=== PATIENT | male | born 1970 | race Two or more races ===

== ENCOUNTER 2017-08-15 17:46 | Inpatient (IN) | payer MEDICAID, OTHER ==
[~2017-08-15] VITALS: Ht 170.2 cm; Wt 70.4 kg
--- NOTE | 2017-08-15 18:06 | NUR ---
TRIAGE NOTE: UNABLE TO INPUT MEDICATION HISTORY IN [facility]
--- NOTE | 2017-08-15 19:59 | NUR ---
Dr. Mckeon at bedside for MSE.
[2017-08-15] MEDS ORDERED: ONDANSETRON 4 MG/2 ML VIAL IV ONE (20:15)
[2017-08-15] MEDS ORDERED: IV NORMAL SALINE 1000 ML BAG IV ONE (20:15)
[2017-08-15] MEDS ORDERED: ONDANSETRON 4 MG/2 ML VIAL ONE (20:16)
[2017-08-15 20:20] LABS: BASOPHILS % (AUTO) 0.4 % (0.0-2.0); EOSINOPHILS # (AUTO) 0.1 K/uL (0.0-0.7); EOSINOPHILS % (AUTO) 1.3 % (0.0-7.0); HEMATOCRIT 46.2 % (36.7-47.1); HEMOGLOBIN 15.7 g/dL (12.5-16.3); LYMPHOCYTES # (AUTO) 3.1 K/uL (20.0-40.0); LYMPHOCYTES % (AUTO) 34.2 % (20.5-51.5); MEAN CORPUSCULAR HEMOGLOBIN 29.3 uug (23.8-33.4); MEAN CORPUSCULAR HGB CONC 34 g/dL (32.5-36.3); MEAN CORPUSCULAR VOLUME 86.2 fL (73.0-96.2); MONOCYTES # (AUTO) 0.8 K/uL (2.0-10.0); MONOCYTES % (AUTO) 9.2 % (0.0-11.0); NEUTROPHILS # (AUTO) 4.9 K/uL (1.8-8.9); NEUTROPHILS % (AUTO) 54.9 % (38.5-71.5); PLATELET COUNT (AUTO) 375 K/uL (152-348); RED BLOOD CELL COUNT(AUTO) 5.36 MIL/uL (4.06-5.63); WHITE BLOOD COUNT (AUTO) 8.9 K/uL (3.6-10.2)
[2017-08-15 20:26] LABS: CARBON DIOXIDE 27 mmol/L (21-32); CHLORIDE 101 mmol/L (98-107); CREATININE 0.6 mg/dL (0.6-1.3); GLUCOSE 121 mg/dL (74-106); UREA NITROGEN, BLOOD 13 mg/dL (7-18)
--- NOTE | 2017-08-15 20:35 | NUR ---
Pt out of ER for CT.
[2017-08-15 20:36] LABS: ALANINE AMINOTRANSFERASE 45 U/L (16-63); ALKALINE PHOSPHATASE 137 U/L (50-136); ASPARTATE AMINOTRANSFERASE 23 U/L (15-37); BILIRUBIN,DIRECT < 0.1 mg/dL (0.0-0.2); BILIRUBIN,TOTAL 0.2 mg/dL (0.2-1.0); LIPASE 149 U/L (73-393); TOTAL PROTEIN, SERUM 8.6 g/dL (6.4-8.2)
--- NOTE | 2017-08-15 20:55 | NUR ---
Patient back to ER from CT.
--- NOTE | 2017-08-15 20:55 | NUR ---
Patient reports feeling better, no nausea, reports to be hungry, requests some food.
[2017-08-15 21:47] LABS: *BILIRUBIN,URIN NEGATIVE (NEGATIVE); *BLOOD, URINE Trace-intact (NEGATIVE); *CLARITY,URINE CLEAR (CLEAR); *COLOR,URINE YELLOW (YELLOW); *KETONES,URINE NEGATIVE (NEGATIVE); *PROTEIN,URINE TRACE (NEGATIVE); *UROBILINOGEN,URINE 0.2 E.U./dl (NORMAL); LEUKOCYTE ESTERASE ,URINE NEGATIVE (NEGATIVE); NITRITE, URINE NEGATIVE (NEGATIVE); UGLUCOSE NEGATIVE (NEGATIVE)
[2017-08-15 21:56] LABS: BACTERIA,URINE FEW /HPF (NONE SEEN); RBC,URINE 0-3 /HPF (0-3); SQUAMOUS EPITHELIAL CELL,UR FEW /HPF (NONE SEEN)
[2017-08-15] MEDS ORDERED: HYDROCODONE/APAP 5-325MG TABLET ONE (23:00)
[2017-08-15] MEDS ORDERED: HYDROCODONE/APAP 5-325MG TABLET PO ONE (23:00)
--- NOTE | 2017-08-15 23:28 | NUR ---
Pt vomitted, MD notified.
[2017-08-15] MEDS ORDERED: METOCLOPRAMIDE HCL 10 MG/2 ML VIAL IV ONE (23:30)
[2017-08-15] MEDS ORDERED: METOCLOPRAMIDE HCL 10 MG/2 ML VIAL ONE (23:44)
[2017-08-16] MEDS ORDERED: IV NS 1000 ML 1,000 ML IV PRN ×2 (00:10→00:22)
--- NOTE | 2017-08-16 00:14 | NUR ---
Passed report to Rebeca SANTA Medsurg.
[2017-08-16] MEDS ORDERED: ACETAMINOPHEN 325 MG TABLET PO PRN (00:15)
[2017-08-16] MEDS ORDERED: HYDROCODONE/APAP 5-325MG TABLET PO PRN (00:15)
[2017-08-16] MEDS ORDERED: TEMAZEPAM 15 MG CAPSULE PO PRN (00:15)
--- NOTE | 2017-08-16 00:40 | NUR ---
Admitted a 46y/o male with diagnosis of Abdominal pain. AOx2-3.Grenadian speaking only. IV site on left hand intact and patent. Routine admission care done. Plan of care initiated. Safety measure initiated.
[2017-08-16 01:00] VITALS: BP 107/70
--- NOTE | 2017-08-16 01:08 | NUR ---
Passed report to Sapphire SANTA Medsurg
[2017-08-16] MEDS: PANTOPRAZOLE SODIUM 40 MG VIAL IV SCH ×2 (01:22→08:42)
[2017-08-16] MEDS: MORPHINE SULFATE 4 MG/1 ML DISP.SYRIN IV PRN ×2 (01:23→10:36)
[2017-08-16 04:00] VITALS: BP 102/67
--- NOTE | 2017-08-16 06:13 | NUR ---
Pt slept well after admission. Remains AOx2-3. Egyptian speaking only. VS WNL. Pain on right hip area manage with Morphine PRN. No nausea or vomiting noted. O2 sat at 94% on RA.IV site on left hand intact and patent. IVF fluid infusing. On NPO status. Safety measure maintained and call rose within reach.
[2017-08-16 06:35] LABS: BASOPHILS % (AUTO) 0.4 % (0.0-2.0); EOSINOPHILS # (AUTO) 0.2 K/uL (0.0-0.7); EOSINOPHILS % (AUTO) 2.4 % (0.0-7.0); HEMOGLOBIN 13.8 g/dL (12.5-16.3); LYMPHOCYTES # (AUTO) 2.3 K/uL (20.0-40.0); LYMPHOCYTES % (AUTO) 32.2 % (20.5-51.5); MEAN CORPUSCULAR HEMOGLOBIN 29.1 uug (23.8-33.4); MEAN CORPUSCULAR HGB CONC 34 g/dL (32.5-36.3); MEAN CORPUSCULAR VOLUME 86.5 fL (73.0-96.2); MONOCYTES # (AUTO) 0.8 K/uL (2.0-10.0); MONOCYTES % (AUTO) 10.7 % (0.0-11.0); NEUTROPHILS # (AUTO) 3.9 K/uL (1.8-8.9); NEUTROPHILS % (AUTO) 54.3 % (38.5-71.5); PLATELET COUNT (AUTO) 342 K/uL (152-348); RED BLOOD CELL COUNT(AUTO) 4.74 MIL/uL (4.06-5.63); WHITE BLOOD COUNT (AUTO) 7.1 K/uL (3.6-10.2)
[2017-08-16 06:53] LABS: ALANINE AMINOTRANSFERASE 59 U/L (16-63); ALKALINE PHOSPHATASE 119 U/L (50-136); ASPARTATE AMINOTRANSFERASE 55 U/L (15-37); BILIRUBIN,TOTAL 0.4 mg/dL (0.2-1.0); CARBON DIOXIDE 26 mmol/L (21-32); CHLORIDE 107 mmol/L (98-107); CREATININE 0.6 mg/dL (0.6-1.3); GLUCOSE 106 mg/dL (74-106); PHOSPHOROUS 3.8 mg/dL (2.5-4.9); POTASSIUM 3.7 mmol/L (3.5-5.1); TOTAL PROTEIN, SERUM 7.1 g/dL (6.4-8.2); UREA NITROGEN, BLOOD 9 mg/dL (7-18)
[2017-08-16 06:59] LABS: THYROID STIMULATING HORMONE 1.248 mIU/mL (0.358-3.740)
[2017-08-16] MEDS ORDERED: DEXTROSE 50% 50 ML DISP.SYRIN IV PRN (07:00)
[2017-08-16] MEDS ORDERED: LORAZEPAM 2 MG/1 ML VIAL IV PRN (07:00)
[2017-08-16] MEDS ORDERED: INSULIN REGULAR, HUMAN 300 UNIT/3 ML VIAL SQ PRN (07:00)
[2017-08-16] MEDS: LEVETIRACETAM IV 500 MG in IV DEXTROSE 5% 100 ML IV SCH ×2 (08:41→21:58)
[2017-08-16] MEDS: ENOXAPARIN SODIUM 40 MG/0.4 ML DISP.SYRIN SQ SCH (08:43)
[2017-08-16] MEDS: IV D5/ 0.9% NACL 1,000 ML IV PRN (08:56)
[2017-08-16] MEDS: ONDANSETRON 4 MG/2 ML VIAL IV PRN ×2 (10:50→23:32)
[2017-08-16] MEDS ORDERED: GOLYTELY 4000 ML BOTTLE PO ONE (11:00)
[2017-08-16] MEDS ORDERED: FLEET ENEMA 133 ML BOTTLE RC ONE (11:00)
[2017-08-16] MEDS ORDERED: MAGNESIUM CITRATE 296 ML BOTTLE PO ONE (11:00)
[2017-08-16 11:28] VITALS: BP 104/56
[2017-08-16] MEDS ORDERED: ONDA4TAB5 PO (12:01)
[2017-08-16] MEDS ORDERED: ATEN25TA PO (12:01)
[2017-08-16] MEDS ORDERED: LEVE500T20 PO (12:01)
[2017-08-16] MEDS ORDERED: HYDR-3326 PO (12:01)
[2017-08-16] MEDS ORDERED: LACO10SO PO (12:01)
[2017-08-16] MEDS ORDERED: DIVA125T2 PO (12:01)
[2017-08-16] MEDS ORDERED: ZONI100C6 PO (12:01)
[2017-08-16] MEDS ORDERED: IBUP-1957 PO (12:01)
[2017-08-16] MEDS ORDERED: POLY15DR27 OP (12:01)
[2017-08-16] MEDS ORDERED: PARO10TA86 PO (12:01)
[2017-08-16] MEDS ORDERED: ASPI-605 PO (12:01)
[2017-08-16] MEDS ORDERED: MELA3TAB PO (12:01)
[2017-08-16] MEDS ORDERED: LISI2.5T2 PO (12:01)
[2017-08-16] MEDS ORDERED: CHOL10002 PO (12:01)
[2017-08-16] MEDS: BLOOD SUGAR DIAGNOSTIC 1 EACH STRIP VI SCH ×3 (12:37→23:05)
[2017-08-16 15:42] VITALS: BP 97/65
--- NOTE | 2017-08-16 18:00 | NUR ---
Patient alert, in no distress. Patient c/o of abdominal pain & nausea, pain management and med for nausea provided. IVF running, no infiltration noted. Prep for colonoscopy/egd procedure done as ordered. Patient had frequent soft/watery stool. Encouraged patient to take golytely to clear bowel, patient verbalized understanding. ETA of procedure to be done tomorrow 08/17/17 at 1400. Patient to be NPO after midnight. Consent forms needs to be signed by the patient, translation in Malay needed. Endorsed to the night coordinator RN.
--- NOTE | 2017-08-16 19:10 | NUR ---
RECEIVED PT AWAKE, ALERT, ORIENTEDX4. PT SHOWS NO SIGNS OF DISTRESS. PT IV INTACT AND PATENT. PT NEED INFORMED CONSENT FOR CRESCENCIO PROCEDURE. CALL LIGHT WITHIN REACH, BED ALARM ON AND IN LOW POSITION, SIDE RAILSX2.WILL CONTINUE TO MONITOR.
[2017-08-16 20:00] VITALS: BP 113/70
[2017-08-16 20:04] LABS: *OCCULT BLOOD STOOL NEGATIVE (NEGATIVE)
--- NOTE | 2017-08-16 21:00 | NUR ---
CALLED SCHOOL BUS DRIVER/CUSTODIAN FOR THE INFORMED CONSENT OF THE PT. ANGELIKA #[id number] TRANSLATED TO THE PT REGARDING THE INFORMED CONSENT FOR HIS EGD AND COLONOSCOPY. CHARGED NURSE WITNESSED THE INFORMED CONSENT AND THE TRANSLATION PROCESS.INFORMED CONSENT ON CHART.
[2017-08-17] MEDS: IV D5/ 0.9% NACL 1,000 ML IV PRN (01:28)
[2017-08-17 04:00] VITALS: BP 105/67
[2017-08-17] MEDS: BLOOD SUGAR DIAGNOSTIC 1 EACH STRIP VI SCH ×3 (05:51→17:15)
[2017-08-17] MEDS: MORPHINE SULFATE 4 MG/1 ML DISP.SYRIN IV PRN (05:54)
[2017-08-17 05:59] LABS: BASOPHILS % (AUTO) 0.5 % (0.0-2.0); EOSINOPHILS # (AUTO) 0.1 K/uL (0.0-0.7); EOSINOPHILS % (AUTO) 1.3 % (0.0-7.0); HEMATOCRIT 39.7 % (36.7-47.1); HEMOGLOBIN 13.6 g/dL (12.5-16.3); LYMPHOCYTES # (AUTO) 1.7 K/uL (20.0-40.0); LYMPHOCYTES % (AUTO) 20.1 % (20.5-51.5); MEAN CORPUSCULAR HEMOGLOBIN 29.2 uug (23.8-33.4); MEAN CORPUSCULAR HGB CONC 34 g/dL (32.5-36.3); MEAN CORPUSCULAR VOLUME 85.6 fL (73.0-96.2); MONOCYTES # (AUTO) 0.7 K/uL (2.0-10.0); MONOCYTES % (AUTO) 7.6 % (0.0-11.0); NEUTROPHILS # (AUTO) 6.1 K/uL (1.8-8.9); NEUTROPHILS % (AUTO) 70.5 % (38.5-71.5); PLATELET COUNT (AUTO) 319 K/uL (152-348); RED BLOOD CELL COUNT(AUTO) 4.64 MIL/uL (4.06-5.63); WHITE BLOOD COUNT (AUTO) 8.6 K/uL (3.6-10.2)
[2017-08-17 06:22] LABS: CARBON DIOXIDE 26 mmol/L (21-32); CHLORIDE 105 mmol/L (98-107); CHOLESTEROL 146 mg/dL (<200); CREATININE 0.6 mg/dL (0.6-1.3); GLUCOSE 127 mg/dL (74-106); HDL CHOLESTEROL 30 mg/dL (40-60); POTASSIUM 3.5 mmol/L (3.5-5.1); TRIGLYCERIDES 125 MG/DL (30-150); UREA NITROGEN, BLOOD 5 mg/dL (7-18)
--- NOTE | 2017-08-17 07:49 | NUR ---
RECEIVED PT AWAKE, ALERT, ORIENTEDX4. PT SHOWS NO SIGNS OF DISTRESS. PT IV INTACT AND PATENT. CALL LIGHT WITHIN REACH, BED ALARM ON AND IN LOW POSITION, SIDE RAILSX2.WILL CONTINUE TO MONITOR.
[2017-08-17] MEDS: PANTOPRAZOLE SODIUM 40 MG VIAL IV SCH (08:01)
[2017-08-17] MEDS: LEVETIRACETAM IV 500 MG in IV DEXTROSE 5% 100 ML IV SCH (08:17)
[2017-08-17] MEDS: ENOXAPARIN SODIUM 40 MG/0.4 ML DISP.SYRIN SQ SCH (08:20)
[2017-08-17] MEDS ORDERED: PANTOPRAZOLE SODIUM 40 MG VIAL IV SCH (11:34)
[2017-08-17 11:46] VITALS: BP 98/59
--- NOTE | 2017-08-17 13:37 | NUR ---
PT WENT TO GI LAB FOR EGD AND COLONOSCOPY VIA BED IN STABLE CONDITION,
[2017-08-17] MEDS ORDERED: SIMETHICONE 40 MG/0.6 ML 30 ML BOTTLE MC ONE (15:18)
[2017-08-17] MEDS ORDERED: PROPOFOL 200 MG/20 ML BOTTLE IV ONE (15:18)
--- NOTE | 2017-08-17 16:30 | NUR ---
PT RECEIVED FROM RECOVERY ROOM VIA BED INSTABLE CONDITION.V/S ARE STABLE.
--- NOTE | 2017-08-17 17:54 | NUR ---
PT EAT DINNER TOLERATED WELL
--- NOTE | 2017-08-17 18:24 | NUR ---
D/C ORDERS RECEIVED NOTED AND CARRIED OUT,D/C HEPLOCK PER MD ORDERS.RN REPORT GIVEN TO RETIREMENT.PT LEFT THE FACILITY VIA AMBULANCES IN STABLE CONDITION
== END 2017-08-17 18:47 | DRG 249 ==
LOC: ER 17:49 → MED 23:00
PROVIDERS: ADMIT Nurse Practitioner Acute Care; ATTEND Nurse Practitioner Acute Care
DX: A08.4 Viral intestinal infection, unspecified (principal); G93.40 Encephalopathy, unspecified; E87.1 Hypo-osmolality and hyponatremia; E44.1 Mild protein-calorie malnutrition; K22.10 Ulcer of esophagus without bleeding; Z86.74 Personal history of sudden cardiac arrest; E86.1 Hypovolemia; K29.70 Gastritis, unspecified, without bleeding; E55.9 Vitamin D deficiency, unspecified; K44.9 Diaphragmatic hernia without obstruction or gangrene; K64.0 First degree hemorrhoids; Z86.73 Personal history of transient ischemic attack (TIA), and cerebral infarction without residual deficits; G40.909 Epilepsy, unspecified, not intractable, without status epilepticus; K80.20 Calculus of gallbladder without cholecystitis without obstruction; K57.30 Diverticulosis of large intestine without perforation or abscess without bleeding; J98.11 Atelectasis; F32.9 Major depressive disorder, single episode, unspecified; Z68.24 Body mass index [BMI] 24.0-24.9, adult; I10 Essential (primary) hypertension; F29 Unspecified psychosis not due to a substance or known physiological condition; Z79.899 Other long term (current) drug therapy; K59.09 Other constipation; K21.0 Gastro-esophageal reflux disease with esophagitis; R59.0 Localized enlarged lymph nodes
CPT/HCPCS: 36415; 43235; 70030-TC; 71045; 76705; 80164; 83605; 83690; 83735; 84100; 84443; 85025; 85730; 87040; 87086; 88342; 93005; A4217; A4663; C9113; J1650; J1815; J1953; J2270; J2405; J2765; J3490; J7030; J7042; J7060

== ENCOUNTER 2018-01-26 22:29 | Inpatient (IN) | payer OTHER ==
[~2018-01-26] VITALS: Ht 162.6 cm; Wt 72.1 kg
[~2018-01-26 22:29] MED LIST: ASPI-605 PO; ATEN25TA PO; CHOL10002 PO; DIVA125T2 PO; HYDR-3326 PO; IBUP-1957 PO; LACO10SO PO; LEVE500T20 PO; LISI2.5T2 PO; MELA3TAB PO; ONDA4TAB5 PO; PARO10TA86 PO; POLY15DR27 OP; ZONI100C6 PO
[2018-01-26] MEDS ORDERED: DEPAKOTE PO (23:04)
[2018-01-26] MEDS ORDERED: LACO10SO PO (23:04)
[2018-01-26] MEDS ORDERED: PANT40TA4 PO (23:04)
[2018-01-26] MEDS ORDERED: METF-442 PO (23:04)
[2018-01-26] MEDS ORDERED: IBUP-1953 PO (23:04)
--- NOTE | 2018-01-26 23:13 | NUR ---
Pt was brought in by ambulance for complaints of nausea, abd pain, vomiting today. Pt stated that he cant keep anything down. Contracted and weakness to BLE noted. No sob noted. No s/sx of distress noted. Resp even and unlabored. Alert, oriented x3. Will cont to monitor. Call light within reach.
[2018-01-26 23:20] LABS: BASOPHILS % (AUTO) 0.5 % (0.0-2.0); EOSINOPHILS # (AUTO) 0.1 K/uL (0.0-0.7); EOSINOPHILS % (AUTO) 1.4 % (0.0-7.0); HEMATOCRIT 44.7 % (36.7-47.1); HEMOGLOBIN 15.5 g/dL (12.5-16.3); LYMPHOCYTES # (AUTO) 2.8 K/uL (20.0-40.0); LYMPHOCYTES % (AUTO) 35.8 % (20.5-51.5); MEAN CORPUSCULAR HEMOGLOBIN 29.4 uug (23.8-33.4); MEAN CORPUSCULAR HGB CONC 35 g/dL (32.5-36.3); MEAN CORPUSCULAR VOLUME 85.1 fL (73.0-96.2); MONOCYTES # (AUTO) 0.8 K/uL (2.0-10.0); MONOCYTES % (AUTO) 10.3 % (0.0-11.0); NEUTROPHILS # (AUTO) 4.1 K/uL (1.8-8.9); PLATELET COUNT (AUTO) 329 K/uL (152-348); RED BLOOD CELL COUNT(AUTO) 5.25 MIL/uL (4.06-5.63); WHITE BLOOD COUNT (AUTO) 7.8 K/uL (3.6-10.2)
[2018-01-26 23:26] LABS: CARBON DIOXIDE 25 mmol/L (21-32); CHLORIDE 102 mmol/L (98-107); CREATININE 0.6 mg/dL (0.6-1.3); GLUCOSE 118 mg/dL (74-106); POTASSIUM 3.8 mmol/L (3.5-5.1); UREA NITROGEN, BLOOD 11 mg/dL (7-18)
[2018-01-26 23:31] LABS: ALANINE AMINOTRANSFERASE 36 U/L (16-63); ALKALINE PHOSPHATASE 108 U/L (50-136); ASPARTATE AMINOTRANSFERASE 18 U/L (15-37); BILIRUBIN,DIRECT 0.1 mg/dL (0.0-0.2); BILIRUBIN,TOTAL 0.4 mg/dL (0.2-1.0); LIPASE 118 U/L (73-393)
[2018-01-26 23:36] LABS: *BILIRUBIN,URIN NEGATIVE (NEGATIVE); *BLOOD, URINE Trace-intact (NEGATIVE); *COLOR,URINE YELLOW (YELLOW); *KETONES,URINE TRACE (NEGATIVE); *PROTEIN,URINE NEGATIVE (NEGATIVE); LEUKOCYTE ESTERASE ,URINE NEGATIVE (NEGATIVE); NITRITE, URINE NEGATIVE (NEGATIVE); UGLUCOSE NEGATIVE (NEGATIVE)
[2018-01-26 23:51] LABS: *CLARITY,URINE HAZY (CLEAR)
[2018-01-26 23:52] LABS: BACTERIA,URINE FEW /HPF (NONE SEEN); MUCUS,URINE FEW /LPF (0-FEW); SQUAMOUS EPITHELIAL CELL,UR MODERATE /HPF (NONE SEEN); URINE AMORPHOUS PHOSPHATES MODERATE /HPF; WBC,URINE 0-3 /HPF (0-3)
--- NOTE | 2018-01-27 00:24 | NUR ---
Pt sleeping at this time. no sob noted. No s/sx of distress noted. Resp even and unlabored. will cont to monitor.
--- NOTE | 2018-01-27 00:57 | NUR ---
Attempted to call report. Receiving nurse is unavailable. Receiving RN will call back.
[2018-01-27] MEDS ORDERED: MORPHINE SULFATE 2 MG/1 ML DISP.SYRIN IV PRN (01:15)
[2018-01-27] MEDS ORDERED: ACETAMINOPHEN 650 MG SUPP.RECT RC PRN (01:15)
[2018-01-27] MEDS ORDERED: ONDANSETRON 4 MG/2 ML VIAL IV PRN (01:15)
--- NOTE | 2018-01-27 01:15 | NUR ---
Patient arrived on unit. Report received from KIET Barnard. Patient is A&O x3 and able to verbalize all needs. Patient is A 47yo Male admitted for abdominal pain. Patient is resting in bed comfortably. Patient is continent of bowel & bladder. Lung sounds are clear bilaterally. No respiratory distress noted. PERRLA. Seizure precautions. Bowel sounds present. At the moment, no pain reported by patient when asked. Skin is warm, dry , pink & intact. Patient has severe weakness in all extremities. Patient is comfortable & resting in bed. All needs met. Call light within reach. Bed in lowest position with 2/4 side rails up & bed alarm on for safety. Will continue to monitor.
[2018-01-27 01:17] VITALS: BP 117/78
--- NOTE | 2018-01-27 01:24 | NUR ---
Report given to KIET Fuentes. Pt. admitted to [facility] , under care of Dr. Carrasco Belongs List completed
[2018-01-27 02:40] LABS: IRON, SERUM 84 ug/dL (50-175)
[2018-01-27] MEDS: IV D5/ 0.9% NACL 1,000 ML IV PRN ×2 (03:08→15:45)
[2018-01-27 04:42] VITALS: BP 115/73
[2018-01-27] MEDS ORDERED: MORPHINE SULFATE 4 MG/1 ML DISP.SYRIN IV PRN (07:30)
[2018-01-27] MEDS: PANTOPRAZOLE SODIUM 40 MG VIAL IV SCH (08:35)
[2018-01-27 11:14] VITALS: BP 98/70
[2018-01-27] MEDS: DIVALPROEX 500 MG TABLET.DR PO SCH ×2 (12:56→16:29)
[2018-01-27] MEDS ORDERED: DIVALPROEX 125 MG TABLET.DR PO SCH ×2 (13:00)
[2018-01-27] MEDS ORDERED: DEPAKOTE PO SCH (13:00)
[2018-01-27] MEDS ORDERED: MAGNESIUM CITRATE 296 ML BOTTLE PO ONE (13:30)
[2018-01-27] MEDS ORDERED: GOLYTELY 4000 ML BOTTLE PO ONE (13:30)
[2018-01-27 15:28] VITALS: BP 91/55
--- NOTE | 2018-01-27 15:29 | NUR ---
PT OBSERVED RESTING WITH NO SIGNS OF RESPIRATORY DISTRESS, BED AT LOWEST LOCKED POSITION. PT REMAINS NPO UNTIL ABDOMINAL US IS COMPLETE.
--- NOTE | 2018-01-27 15:45 | NUR ---
NURSE REASSIGNMENT ASSUMED CARE OF THIS PATIENT AT THIS TIME HE IS ASLEEP OPENS EYES WHEN NAME IS CALLED AND WILL PROMPTLY FALL BACK ASLEEP NO DISTRESS NOTED ON IVF ORDERED WITH NO S/S OF INFILTRATION ON SITE NO SEIZURE ACTIVITIES AT THIS TIME REMAIN NPO PENDING CT OF THE ABDOMEN ORDERED MADE COMFORTABLE AND WILL CONTINUE TO OBSERVE.
[2018-01-27] MEDS: LEVETIRACETAM 500 MG TABLET PO SCH (16:29)
[2018-01-27] MEDS ORDERED: Medication Not On Formulary EA (Lacosamide (Vimpat) 100 MG) PO SCH (17:00)
--- NOTE | 2018-01-27 18:09 | NUR ---
TOLERATED MEDICATIONS ORDERED NO SEIZURES REPOSITIONED FOR COMFORT VOIDING IN URINAL ASSISTED NEEDED HEELS FLOATED MADE COMFORTABLE WILL CONTINUE TO OBSERVE.
[2018-01-27 19:00] VITALS: BP 94/55
--- NOTE | 2018-01-27 19:23 | NUR ---
RECEIVED PT AWAKE, ALERT, AND ORIENTEDX3. PT SHOWS NO SIGNS OF DISTRESS. IV INTACT AND PATENT BED ALARM ON.SAFETY AND COMFORT PROVIDED. WILL CONTINUE TO MONITOR.
[2018-01-27] MEDS: ATENOLOL 25 MG TABLET PO SCH (21:00)
[2018-01-27] MEDS: LACOSAMIDE 50 MG TABLET PO SCH (21:00)
[2018-01-27] MEDS: ZONISAMIDE 100 MG CAPSULE PO SCH (21:04)
--- NOTE | 2018-01-27 21:55 | NUR ---
HELD MEDICATIONS FOR VIMPAT AND TENORMIN BECAUSE OF DECREASED BP. BP WAS 94/55 AND 69 PULSE. PT SHOWS NO SIGNS OF DISTRESS. IV INTACT. TURNED AND REPOSITIONED. SAFETY AND COMFORT PROVIDED. WILL CONTINUE TO MONITOR.
[2018-01-27] MEDS: ACETAMINOPHEN 325 MG TABLET PO PRN (22:02)
[2018-01-28 04:00] VITALS: BP 87/57
[2018-01-28] MEDS: IV D5/ 0.9% NACL 1,000 ML IV PRN ×3 (04:28→23:37)
[2018-01-28] MEDS ORDERED: FLEET ENEMA 133 ML BOTTLE RC PRN (06:00)
--- NOTE | 2018-01-28 06:27 | NUR ---
PT SLEPT INTERMITTENTLY.. BED ALARM ON. SAFETY AND COMFORT PROVIDED.IV INTACT AND PATENT. PRESCRIBED MEDICATION GIVEN AND PT TOLERATED IT WELL. ALL NEEDS ARE MET. TURNED AND [id number]. PT ASKING FOR SLEEPING MEDICATION AT 3AM. TOLD THE PT ITS 3AM ALREADY AND IT IS OUR POLICY NOT TO GIVE SLEEPING MEDICATION AT THAT HOUR. WILL ENDORSE ACCORDINGLY TO DAYSHIFT NURSE.
[2018-01-28 06:35] LABS: BASOPHILS % (AUTO) 0.4 % (0.0-2.0); CARBON DIOXIDE 24 mmol/L (21-32); CHLORIDE 109 mmol/L (98-107); CREATININE 0.6 mg/dL (0.6-1.3); EOSINOPHILS # (AUTO) 0.1 K/uL (0.0-0.7); EOSINOPHILS % (AUTO) 1.4 % (0.0-7.0); GLUCOSE 122 mg/dL (74-106); HEMATOCRIT 41.4 % (36.7-47.1); HEMOGLOBIN 14.2 g/dL (12.5-16.3); LYMPHOCYTES % (AUTO) 33.8 % (20.5-51.5); MAGNESIUM 1.9 mg/dL (1.8-2.4); MEAN CORPUSCULAR HEMOGLOBIN 29.7 uug (23.8-33.4); MEAN CORPUSCULAR HGB CONC 34 g/dL (32.5-36.3); MEAN CORPUSCULAR VOLUME 86.6 fL (73.0-96.2); MONOCYTES # (AUTO) 0.6 K/uL (2.0-10.0); NEUTROPHILS # (AUTO) 3.3 K/uL (1.8-8.9); NEUTROPHILS % (AUTO) 54.4 % (38.5-71.5); PHOSPHOROUS 3.2 mg/dL (2.5-4.9); PLATELET COUNT (AUTO) 282 K/uL (152-348); POTASSIUM 3.7 mmol/L (3.5-5.1); RED BLOOD CELL COUNT(AUTO) 4.78 MIL/uL (4.06-5.63); UREA NITROGEN, BLOOD 6 mg/dL (7-18); WHITE BLOOD COUNT (AUTO) 6.1 K/uL (3.6-10.2)
--- NOTE | 2018-01-28 08:00 | NUR ---
AWAKE ALERT COOPERATE NO SOB OR ABD PAIN EAT CLEAR LIQWELL NO N/V ON FALL PRECAUTION BED ALARM ON AND CALLLIGHT IN REACH
[2018-01-28] MEDS: PANTOPRAZOLE SODIUM 40 MG VIAL IV SCH (08:19)
[2018-01-28] MEDS: LEVETIRACETAM 500 MG TABLET PO SCH ×2 (08:20→17:15)
[2018-01-28] MEDS: ASPIRIN EC 81 MG TABLET.DR PO SCH (08:20)
[2018-01-28] MEDS: CHOLECALCIFEROL 1,000 UNIT TABLET PO SCH (08:20)
[2018-01-28] MEDS: LACOSAMIDE 50 MG TABLET PO SCH ×2 (08:20→21:00)
[2018-01-28] MEDS: DIVALPROEX 500 MG TABLET.DR PO SCH ×3 (08:20→17:15)
[2018-01-28] MEDS: PAROXETINE HCL 10 MG TABLET PO SCH (08:20)
[2018-01-28 08:30] VITALS: BP 90/61
[2018-01-28] MEDS: LISINOPRIL 5 MG TABLET PO SCH (09:00)
[2018-01-28] MEDS: ATENOLOL 25 MG TABLET PO SCH ×2 (09:00→21:00)
--- NOTE | 2018-01-28 10:00 | NUR ---
Teresa NEWTON WASINFORMOF PATIENT BP STILLLOWBUT STABLE NEW ORDER TO INCREASE IV RATE TO 125ML/HR
[2018-01-28 11:27] VITALS: BP 107/66
--- NOTE | 2018-01-28 14:00 | NUR ---
PATIENT HAVING LOOSE BM X3 TODAY JESSICA WAS INFORM STOOL SENT TO LAB ORDER
[2018-01-28 15:30] VITALS: BP 110/65
[2018-01-28] MEDS: ACETAMINOPHEN 325 MG TABLET PO PRN ×2 (17:15→21:48)
--- NOTE | 2018-01-28 17:30 | NUR ---
STABLE HEMODYNAMIC STATUS ,PAIN UNDER CONTROL CONTINUE IVF EAT LIQDIET WELL NO N/V NO ACUTE DISTRESS SAFETY AND COMFORT MEASURE PROVIDED BED ALARM ON AND CALLLIGHT IN REACH
--- NOTE | 2018-01-28 19:42 | NUR ---
RECEIVED PT AWAKE, ALERT,AND ORIENTEDX3. PT SHOWS NO SIGNS OF DISTRESS. IV INTACT AND PATENT. CALL LIGHT WITHIN REACH. SAFETY AND COMFORT PROVIDED. WILL CONTINUE TO MONITOR.
[2018-01-28 20:19] VITALS: BP 105/60
[2018-01-28] MEDS: ZONISAMIDE 100 MG CAPSULE PO SCH (20:21)
[2018-01-28 23:19] LABS: *OCCULT BLOOD STOOL NEGATIVE (NEGATIVE)
[2018-01-29] MEDS ORDERED: ZOLPIDEM 5 MG TABLET PO PRN (01:00)
[2018-01-29 05:34] VITALS: BP 115/72
--- NOTE | 2018-01-29 06:11 | NUR ---
PT SLEPT THROUGHOUT THE SHIFT. PT SHOWS NO SIGNS OF DISTRESS. IV INTACT AND PATENT. SAFETY AND COMFORT PROVIDED. TURNED AND REPOSITIONED. VIMPAT AND TENORMIN HOLD BECAUSE OF DECREASED BLOOD PRESSURE OF 105/60. NOTIFY DR. GAYTAN ABOUT THE BLOOD PRESSURE. PT REQUESTED SLEEP MEDICATION. DR. GAYTAN ORDERED AMBIEN 5MG HSPRN. PRESCRIBED MEDICATION GIVEN AND PT TOLERATED IT WELL. VITAL SIGNS WITHIN NORMAL LIMIT. PT REFUSED TO PUT HIS HOSPITAL GOWN ON. SAFETY AND COMFORT PROVIDED. ALL NEEDS ARE MET. WILL ENDORSE ACCORDINGLY TO DAYSHIFT NURSE FOR CONTINUITY OF CARE.
[2018-01-29 06:54] LABS: BASOPHILS % (AUTO) 0.4 % (0.0-2.0); EOSINOPHILS # (AUTO) 0.1 K/uL (0.0-0.7); EOSINOPHILS % (AUTO) 1.4 % (0.0-7.0); HEMOGLOBIN 13.9 g/dL (12.5-16.3); LYMPHOCYTES # (AUTO) 1.5 K/uL (20.0-40.0); LYMPHOCYTES % (AUTO) 25.7 % (20.5-51.5); MEAN CORPUSCULAR HEMOGLOBIN 29.5 uug (23.8-33.4); MEAN CORPUSCULAR HGB CONC 34 g/dL (32.5-36.3); MONOCYTES # (AUTO) 0.5 K/uL (2.0-10.0); MONOCYTES % (AUTO) 9.2 % (0.0-11.0); NEUTROPHILS # (AUTO) 3.8 K/uL (1.8-8.9); NEUTROPHILS % (AUTO) 63.3 % (38.5-71.5); PLATELET COUNT (AUTO) 275 K/uL (152-348); RED BLOOD CELL COUNT(AUTO) 4.71 MIL/uL (4.06-5.63); WHITE BLOOD COUNT (AUTO) 5.9 K/uL (3.6-10.2)
[2018-01-29] MEDS ORDERED: PANTOPRAZOLE SODIUM 40 MG TABLET.DR PO SCH (07:00)
[2018-01-29 07:06] LABS: CARBON DIOXIDE 22 mmol/L (21-32); CHLORIDE 109 mmol/L (98-107); CREATININE 0.5 mg/dL (0.6-1.3); GLUCOSE 141 mg/dL (74-106); POTASSIUM 3.5 mmol/L (3.5-5.1); UREA NITROGEN, BLOOD 3 mg/dL (7-18)
[2018-01-29 07:07] LABS: MAGNESIUM 1.7 mg/dL (1.8-2.4); PHOSPHOROUS 2.6 mg/dL (2.5-4.9); VALPROIC ACID 53 ug/mL (50-100)
[2018-01-29] MEDS: IV D5/ 0.9% NACL 1,000 ML IV PRN (07:17)
[2018-01-29] MEDS: DIVALPROEX 500 MG TABLET.DR PO SCH ×3 (08:10→16:15)
[2018-01-29] MEDS: LEVETIRACETAM 500 MG TABLET PO SCH ×2 (08:10→16:16)
[2018-01-29] MEDS: ATENOLOL 25 MG TABLET PO SCH (08:17)
[2018-01-29] MEDS: CHOLECALCIFEROL 1,000 UNIT TABLET PO SCH (08:18)
[2018-01-29] MEDS: LACOSAMIDE 50 MG TABLET PO SCH (08:18)
[2018-01-29] MEDS: ASPIRIN EC 81 MG TABLET.DR PO SCH (08:18)
[2018-01-29] MEDS: PAROXETINE HCL 10 MG TABLET PO SCH (08:18)
[2018-01-29] MEDS: LISINOPRIL 5 MG TABLET PO SCH (08:18)
--- NOTE | 2018-01-29 09:48 | NUR ---
Received patient sleeping in stable condition with ongoing IVF D5NS 1000ML % running 125ML/HR. not in distress. medication tolerated well. Continue repositioning as needed. Continue monitoring blood pressure controlled with medication. will continue monitor
[2018-01-29] MEDS ORDERED: MAGNESIUM SULFATE/D5W 100 ML IV SCH (10:45)
[2018-01-29 11:03] VITALS: BP 134/85
--- NOTE | 2018-01-29 11:19 | NUR ---
Patient magnesium 1.7 low, magnesium 100ml IV given as per MD order. will continue monitor
[2018-01-29] MEDS: SUCRALFATE 1 G TABLET PO SCH ×2 (11:25→16:15)
[2018-01-29] MEDS ORDERED: ATEN25TA PO (15:27)
[2018-01-29] MEDS ORDERED: ACET325T53 PO (15:27)
[2018-01-29] MEDS ORDERED: MULT1TAB73 PO (15:27)
[2018-01-29] MEDS ORDERED: SUCR1TAB PO (15:27)
[2018-01-29] MEDS ORDERED: LISI2.5T2 PO (15:27)
[2018-01-29] MEDS ORDERED: GLIP5TAB13 PO (15:41)
[2018-01-29 15:58] VITALS: BP 102/63
--- NOTE | 2018-01-29 18:10 | NUR ---
d/c orders received noted and carried out,d/c heplock per md orders,pt left the facility via ambulances in stable condition
== END 2018-01-29 18:00 | DRG 241 ==
LOC: ER 22:31 → MED 01-27 01:08
PROVIDERS: ADMIT Internal Medicine; ATTEND Registered Nurse
DX: K29.00 Acute gastritis without bleeding (principal); G93.1 Anoxic brain damage, not elsewhere classified; R53.2 Functional quadriplegia; E11.65 Type 2 diabetes mellitus with hyperglycemia; I48.0 Paroxysmal atrial fibrillation; E83.42 Hypomagnesemia; K31.84 Gastroparesis; E11.43 Type 2 diabetes mellitus with diabetic autonomic (poly)neuropathy; Z86.74 Personal history of sudden cardiac arrest; F01.50 Vascular dementia, unspecified severity, without behavioral disturbance, psychotic disturbance, mood disturbance, and anxiety; Z90.49 Acquired absence of other specified parts of digestive tract; G40.909 Epilepsy, unspecified, not intractable, without status epilepticus; K21.0 Gastro-esophageal reflux disease with esophagitis; K44.9 Diaphragmatic hernia without obstruction or gangrene; Z79.82 Long term (current) use of aspirin; K57.30 Diverticulosis of large intestine without perforation or abscess without bleeding; Z99.3 Dependence on wheelchair; R94.8 Abnormal results of function studies of other organs and systems; D63.8 Anemia in other chronic diseases classified elsewhere; I11.9 Hypertensive heart disease without heart failure; E05.90 Thyrotoxicosis, unspecified without thyrotoxic crisis or storm; H04.123 Dry eye syndrome of bilateral lacrimal glands; K64.8 Other hemorrhoids; Z79.84 Long term (current) use of oral hypoglycemic drugs; Z86.73 Personal history of transient ischemic attack (TIA), and cerebral infarction without residual deficits
CPT/HCPCS: 36415; 70030-TC; 71045; 76700; 80164; 82378; 83520; 83550; 83605; 83690; 83735; 84100; 85025; 85730; 86256; 86625; 87040; 87046; 87086; 87177; 89055; 93005; A4663; C9113; G0378; J3475; J7042; J8499

== ENCOUNTER 2021-04-03 21:50 | Emergency (ER) | payer OTHER ==
[~2021-04-03] VITALS: Ht 165.1 cm; Wt 66.2 kg
[~2021-04-03 21:50] MED LIST changes: +ACET325T53 PO; +DEPAKOTE PO; -DIVA125T2 PO; +GLIP5TAB13 PO; +IBUP-1953 PO; -IBUP-1957 PO; -LACO10SO PO; +LACO10SO3 PO; +LISI2.5T14 PO; -LISI2.5T2 PO; -MELA3TAB PO; +MELA3TAB41 PO; +METF-442 PO; +MULT-594 PO; +PANT40TA49 PO; +SUCR1TAB PO; +ZONI100C31 PO; -ZONI100C6 PO
--- NOTE | 2021-04-03 22:00 | NUR ---
PT BIB PVT AMBULNCE FROM [facility] FOR UNWITNESSED FALL, NO APPARENT INJURY, C/O LT KNEE PAIN. PT A/O X4, NO SOB OR LABORED BREATHING. AFEBRILE.
--- NOTE | 2021-04-03 22:11 | NUR ---
PT TAKEN TO CT/XRAY.
[2021-04-03] MEDS ORDERED: METH-806 PO (22:13)
[2021-04-03] MEDS ORDERED: ONDA4TAB5 PO (22:13)
[2021-04-03] MEDS ORDERED: APIX2.5T PO (22:13)
[2021-04-03] MEDS ORDERED: LEVE500T9 PO (22:13)
[2021-04-03] MEDS ORDERED: ZONI100C42 PO (22:13)
[2021-04-03] MEDS ORDERED: METF-494 PO (22:13)
[2021-04-03] MEDS ORDERED: VALP250S4 PO (22:13)
[2021-04-03] MEDS ORDERED: POLY17PO4 PO (22:13)
[2021-04-03] MEDS ORDERED: FAMO20TA8 PO (22:13)
[2021-04-03] MEDS ORDERED: HYDR-4075 PO (22:13)
--- NOTE | 2021-04-03 22:25 | NUR ---
PT RETURNED FROM CT. STABLE CONDITION.
--- NOTE | 2021-04-03 22:28 | NUR ---
LAB AT BEDSIDE.
[2021-04-03 22:49] LABS: MEAN CORPUSCULAR HEMOGLOBIN 26.4 uug (23.8-33.4); MEAN CORPUSCULAR VOLUME 79.2 fL (73.0-96.2); PLATELET COUNT (AUTO) 351 K/uL (152-348)
[2021-04-03 22:51] LABS: CREATININE 0.8 mg/dL (0.6-1.3)
--- NOTE | 2021-04-03 23:37 | NUR ---
CALLED CASSANDRA SPOKE WITH DANE, PROVIDED ETA OF 1 HOUR. [facility], SPOKE WITH ISIDORO, MADE AWARE PT IS BEING DISCHARGED AND SENT BACK TO FACILITY.
--- NOTE | 2021-04-04 00:11 | NUR ---
[facility] AT BEDSIDE TO TRANSPORT PT BACK TO FACILITY.
[2021-04-04 00:20] VITALS: BP 118/60
--- NOTE | 2021-04-04 00:20 | NUR ---
Patient discharged to [facility] in stable condition. Written and verbal after care instructions given to patient and [facility] EMT, verbalizes understanding of instructions. Stressed follow up or return to ER for worsening s/s. Pt denies any pain/discomfort upon discharge. No changes in LOC.
== END 2021-04-04 00:21 ==
LOC: ER 21:52
DX: S80.02XA Contusion of left knee, initial encounter (principal); M25.562 Pain in left knee; W06.XXXA Fall from bed, initial encounter; Y92.122 Bedroom in nursing home as the place of occurrence of the external cause; Z93.3 Colostomy status; F25.9 Schizoaffective disorder, unspecified; E11.9 Type 2 diabetes mellitus without complications; Z79.84 Long term (current) use of oral hypoglycemic drugs; K91.5 Postcholecystectomy syndrome; K21.9 Gastro-esophageal reflux disease without esophagitis; Z79.899 Other long term (current) drug therapy; G40.909 Epilepsy, unspecified, not intractable, without status epilepticus; Z86.73 Personal history of transient ischemic attack (TIA), and cerebral infarction without residual deficits; G82.50 Quadriplegia, unspecified
CPT/HCPCS: 36415; 70450; 73560; 85025; A4663

== ENCOUNTER 2021-10-22 22:55 | Inpatient (IN) | payer OTHER ==
[~2021-10-22] VITALS: Ht 172.7 cm; Wt 68.9 kg
[~2021-10-22 22:55] MED LIST changes: +APIX2.5T PO; -ASPI-605 PO; -DEPAKOTE PO; +FAMO20TA8 PO; -GLIP5TAB13 PO; -HYDR-3326 PO; +HYDR-4075 PO; -IBUP-1953 PO; -LEVE500T20 PO; +LEVE500T9 PO; -METF-442 PO; +METF-494 PO; +METH-806 PO; -PANT40TA49 PO; -PARO10TA86 PO; -POLY15DR27 OP; +POLY17PO4 PO; -SUCR1TAB PO; +VALP250S4 PO; -ZONI100C31 PO; +ZONI100C42 PO
[2021-10-22] MEDS ORDERED: IV NORMAL SALINE 1000 ML BAG IV ONE (23:00)
--- NOTE | 2021-10-22 23:00 | NUR ---
Dr. Restrepo at bedside for MSE.
[2021-10-22 23:25] LABS: *BILIRUBIN,URIN NEGATIVE (NEGATIVE); *BLOOD, URINE 3+ (NEGATIVE); *CLARITY,URINE SLIGHTLY CLOUDY (CLEAR); *COLOR,URINE YELLOW (YELLOW); *KETONES,URINE TRACE (NEGATIVE); *UROBILINOGEN,URINE 0.2 E.U./dl (NORMAL); LEUKOCYTE ESTERASE ,URINE NEGATIVE (NEGATIVE); NITRITE, URINE NEGATIVE (NEGATIVE)
[2021-10-22 23:29] LABS: UGLUCOSE 3+ (NEGATIVE)
[2021-10-22] MEDS ORDERED: LEVE100S PO (23:29)
[2021-10-22] MEDS ORDERED: LISI2.5T14 PO (23:29)
[2021-10-22] MEDS ORDERED: [UNRECOGNIZED DRUG - CODE] IM (23:29)
[2021-10-22] MEDS ORDERED: METF-440 PO (23:29)
[2021-10-22] MEDS ORDERED: OMEG1CAP PO (23:29)
[2021-10-22 23:31] LABS: HEMATOCRIT 36.5 % (36.7-47.1); MEAN CORPUSCULAR HEMOGLOBIN 29.7 uug (23.8-33.4); MEAN CORPUSCULAR VOLUME 85.9 fL (73.0-96.2); PLATELET COUNT (AUTO) 319 K/uL (152-348)
[2021-10-22 23:39] LABS: BILIRUBIN,DIRECT 0.1 mg/dL (0.0-0.2); BILIRUBIN,TOTAL 0.2 mg/dL (0.2-1.0); POTASSIUM 3.8 mmol/L (3.5-5.1); TOTAL PROTEIN, SERUM 7.8 g/dL (6.4-8.2)
--- NOTE | 2021-10-22 23:50 | NUR ---
Pt out of ER for CT.
--- NOTE | 2021-10-23 00:05 | NUR ---
Pt back to ER from CT.
[2021-10-23 00:37] LABS: BACTERIA,URINE FEW /HPF (NONE SEEN); RBC,URINE 20-50 /HPF (0-3); SQUAMOUS EPITHELIAL CELL,UR FEW /HPF (NONE SEEN)
[2021-10-23] MEDS ORDERED: CEFTRIAXONE /D5W 50ML IVPB **ER PYXIS IV ONE (02:11)
[2021-10-23] MEDS ORDERED: CEFTRIAXONE 1 G in IV DEXTROSE 5% 50 ML IV ONE (02:15)
[2021-10-23] MEDS ORDERED: IV NS 1000 ML 1,000 ML IV ONE ×3 (04:45)
[2021-10-23] MEDS ORDERED: LIDOCAINE 2% (GLYDO= UROJET) 10 ML JELLY MM ONE (05:30)
--- NOTE | 2021-10-23 05:30 | NUR ---
Dr. Restrepo on panel call with Dionicio Rodgers DNP.
[2021-10-23] MEDS ORDERED: hydrALAZINE HCL 10 MG TABLET PO PRN (06:00)
[2021-10-23] MEDS ORDERED: LISINOPRIL 10 MG TABLET PO ONE (09:00)
[2021-10-23] MEDS: FAMOTIDINE 20 MG TABLET PO SCH (09:00)
[2021-10-23] MEDS ORDERED: APIXABAN 2.5 MG TABLET PO SCH (09:00)
[2021-10-23] MEDS: ATENOLOL 25 MG TABLET PO SCH (09:30)
[2021-10-23] MEDS ORDERED: ACETAMINOPHEN 325 MG TABLET PO PRN (15:00)
[2021-10-23] MEDS ORDERED: MAGNESIUM HYDROXIDE 30 ML LIQUID UDC PO PRN (15:00)
[2021-10-23] MEDS ORDERED: DEXTROSE 50% 50 ML DISP.SYRIN IV PRN (15:00)
[2021-10-23] MEDS ORDERED: ONDANSETRON 4 MG/2 ML VIAL IV PRN (15:00)
[2021-10-23] MEDS ORDERED: REMEDY ESSENTIAL ZINC PASTE 113 GM TP PRN (15:00)
[2021-10-23] MEDS ORDERED: levoFLOXacin 500 MG/D5W 100 ML ONE (15:16)
[2021-10-23] MEDS ORDERED: FAMOTIDINE 20 MG TABLET ONE (15:17)
[2021-10-23] MEDS ORDERED: LISINOPRIL 10 MG TABLET ONE (15:17)
[2021-10-23] MEDS ORDERED: ATENOLOL 25 MG TABLET ONE (15:17)
[2021-10-23] MEDS: levoFLOXacin 500 MG/D5W 500 MG in PREMIXED 1 EACH IV SCH (15:44)
[2021-10-23] MEDS: BLOOD SUGAR DIAGNOSTIC 1 EACH STRIP VI SCH ×2 (16:40→20:47)
[2021-10-23] MEDS: INSULIN REGULAR, HUMAN 300 UNIT/3 ML VIAL SQ PRN (16:48)
--- NOTE | 2021-10-23 19:30 | NUR ---
Patient laying on gurny with no distress noted. Colostomy intact draining soft brown stool. Gonzales draining clear yelllow urine. IV hep lock patient. No distress noted.
--- NOTE | 2021-10-23 20:00 | NUR ---
Patient placed in regular hospital bed for patient comfort. No Beds available to admit patient in the 3rd floor.
[2021-10-23] MEDS ORDERED: levETIRAcetam 500 MG/5 ML VIAL IV ONE (20:32)
[2021-10-23] MEDS ORDERED: LACOSAMIDE 50 MG TABLET ONE (20:32)
[2021-10-23] MEDS ORDERED: ZONISAMIDE 100 MG CAPSULE ONE (20:33)
[2021-10-23] MEDS: levETIRAcetam 500 MG/5 ML LIQUID UDC PO SCH (20:47)
[2021-10-23] MEDS: MULTIVIT, IRON, MIN NO. 8, FA TABLET PO SCH (20:47)
[2021-10-23] MEDS: LACOSAMIDE 100 MG/10 ML UDC PO SCH (20:48)
[2021-10-23] MEDS: ZONISAMIDE 100 MG CAPSULE PO SCH (20:59)
[2021-10-23] MEDS: IV NS 1000 ML 1,000 ML IV PRN (21:21)
[2021-10-23] MEDS ORDERED: METRONIDAZOLE 500 MG/NS 100ML 100 ML IV ONE (22:39)
[2021-10-23] MEDS: METRONIDAZOLE 500 MG/NS 100ML 500 MG in PREMIXED 1 EACH IV SCH (22:40)
[2021-10-24] MEDS ORDERED: METRONIDAZOLE 500 MG/NS 100ML 100 ML IV ONE (05:52)
[2021-10-24 05:59] LABS: HEMATOCRIT 35.2 % (36.7-47.1); MEAN CORPUSCULAR HEMOGLOBIN 29.3 uug (23.8-33.4); MEAN CORPUSCULAR VOLUME 87.4 fL (73.0-96.2); PLATELET COUNT (AUTO) 318 K/uL (152-348)
[2021-10-24] MEDS: METRONIDAZOLE 500 MG/NS 100ML 500 MG in PREMIXED 1 EACH IV SCH ×2 (05:59→14:00)
[2021-10-24 06:11] LABS: CREATININE 0.7 mg/dL (0.6-1.3); MAGNESIUM 1.8 mg/dL (1.8-2.4); POTASSIUM 3.3 mmol/L (3.5-5.1)
--- NOTE | 2021-10-24 07:30 | NUR ---
(While waiting for the primary nurse Freda), this patient is waiting for an available 3rd floor nurse. Per nursing house furnishings supervisor Shukri and morning house furnishings supervisor Francisco, primary RN Freda is on his way. Patient is in our ER department for over 20 hours, on a hospital bed. Patient is resting comfortably in bed with eyes closed. NAD.
[2021-10-24] MEDS: BLOOD SUGAR DIAGNOSTIC 1 EACH STRIP VI SCH ×4 (08:00→21:22)
--- NOTE | 2021-10-24 08:06 | NUR ---
SBAR to primary RN Freda.
[2021-10-24] MEDS ORDERED: PANTOPRAZOLE SODIUM 40 MG VIAL ONE (08:59)
[2021-10-24] MEDS ORDERED: levETIRAcetam 500 MG/5 ML VIAL IV ONE (09:00)
[2021-10-24] MEDS ORDERED: FAMOTIDINE 20 MG TABLET ONE (09:01)
[2021-10-24] MEDS ORDERED: ATENOLOL 25 MG TABLET ONE (09:01)
[2021-10-24] MEDS ORDERED: LACOSAMIDE 50 MG TABLET ONE ×2 (09:04→17:55)
[2021-10-24] MEDS ORDERED: POTASSIUM CHLORIDE 20 MEQ TAB.PRT.SR PO ONE (09:30)
[2021-10-24] MEDS: FAMOTIDINE 20 MG TABLET PO SCH (09:40)
[2021-10-24] MEDS: PANTOPRAZOLE SODIUM 40 MG VIAL IV SCH (09:40)
[2021-10-24] MEDS: levETIRAcetam 500 MG/5 ML LIQUID UDC PO SCH ×2 (09:40→17:00)
[2021-10-24] MEDS: ATENOLOL 25 MG TABLET PO SCH (09:42)
[2021-10-24] MEDS: MULTIVIT, IRON, MIN NO. 8, FA TABLET PO SCH (09:43)
[2021-10-24] MEDS: LACOSAMIDE 100 MG/10 ML UDC PO SCH ×2 (09:43→17:00)
[2021-10-24] MEDS ORDERED: POTASSIUM CHLORIDE 20 MEQ TAB.PRT.SR ONE (10:43)
[2021-10-24] MEDS: INSULIN REGULAR, HUMAN 300 UNIT/3 ML VIAL SQ PRN (11:15)
--- NOTE | 2021-10-24 11:16 | NUR ---
Pt just fed breakfast, with HOB at 35 degrees. Pt consumed approx 60% of breakfast, mostly the protein, eggs and chaudhari, with some pancake. Pt had approx 240cc H20, and 8oz of apple juice. Right before we started bfast. pt was covered with 3units of regular insulin.
--- NOTE | 2021-10-24 11:22 | NUR ---
Pt asked to for HOB to be put back down and forhim to go back to sleep. Lights off, pt resting comfortably , VSS, 116/71, 96% RA, 73bpm, 17rpm, NSR without ectopy.
--- NOTE | 2021-10-24 12:02 | NUR ---
Pt is requesting for his colostomy bag to be changed, I offered to emtpy the bag and clean it so that if is not full of gas, but pt is adimant about having it changed, he states that is been on for 6 days now at it needs to be changed. MEDICAL COST CONSULTANT Elma when to 3rd floor to package pick up a new bag. All supplies at the bedside, Will go in to change colostomy bag in a little bit. VSS, pt is fine, resting quietly. 100/59, 96%RA, 74bpm. No s.sx of distress present.
--- NOTE | 2021-10-24 14:30 | NUR ---
Pt fed a complete lunch, pt is total feeder. is completely dependent for someone to feed him. However, pt is a good feeder and takes, meds well. Pt consumed approx 70% of lunch. pt enjoyed it, and was thankful for thehelp. VSS, NAD, No s/sx of distress present.
[2021-10-24] MEDS: levoFLOXacin 500 MG/D5W 500 MG in PREMIXED 1 EACH IV SCH (15:44)
--- NOTE | 2021-10-24 15:45 | NUR ---
Help primary rn to insert a new G20 to LFA. and antibiotics administered.
[2021-10-24] MEDS ORDERED: levETIRAcetam 500 MG/5 ML LIQUID UDC ONE (17:54)
--- NOTE | 2021-10-24 18:20 | NUR ---
Pt fed a complete dinner total feed. Pt consumed approx 75% of dinner tray. VSS, inno apparent. distress. Pt went back to sleep right after he finished sleeping.
[2021-10-24] MEDS ORDERED: LACOSAMIDE 100 MG/10 ML UDC ONE (19:10)
--- NOTE | 2021-10-24 21:53 | NUR ---
Transfered to 3rd floor [facility] Med Surg via hospital bed with no distress noted.
[2021-10-24 22:30] VITALS: BP 101/63
--- NOTE | 2021-10-24 22:30 | NUR ---
Received pt via scarrsam assisted by ER nurse. Admitted at [facility] unit. Chief complaint unable to urinate. Diagnosis of Cystitis. Pt is paraplegic, contracted BLE. On room air sating at 96%. Gonzales catheter and colostomy bag intact. IV on L FA 20 g intact and patent. All belongings checked. Safety measures maintained. All needs attended, call light within reach.
[2021-10-24] MEDS: ZONISAMIDE 100 MG CAPSULE PO SCH (23:06)
[2021-10-24] MEDS: INSULIN REGULAR, HUMAN 300 UNITS/3 ML VIAL SQ PRN (23:16)
[2021-10-25] MEDS ORDERED: METRONIDAZOLE 500 MG/NS 100ML 100 ML IV ONE ×2 (00:01)
[2021-10-25] MEDS: IV NS 1000 ML 1,000 ML IV PRN ×2 (00:05→10:46)
[2021-10-25] MEDS: METRONIDAZOLE 500 MG/NS 100ML 500 MG in PREMIXED 1 EACH IV SCH ×4 (00:16→21:42)
--- NOTE | 2021-10-25 02:00 | NUR ---
Pt complained of hip pain. 11/23. Analgesic administered as ordered. Will continue to monitor.
[2021-10-25 04:00] VITALS: BP 110/70
[2021-10-25] MEDS ORDERED: REMEDY ESSENTIAL ZINC PASTE 113 GM TP PRN (05:45)
[2021-10-25] MEDS ORDERED: ONDANSETRON 4 MG/2 ML VIAL IV PRN (05:45)
[2021-10-25 06:30] LABS: HEMATOCRIT 32.1 % (36.7-47.1); MEAN CORPUSCULAR HEMOGLOBIN 29.7 uug (23.8-33.4); MEAN CORPUSCULAR VOLUME 86.1 fL (73.0-96.2); PLATELET COUNT (AUTO) 317 K/uL (152-348)
[2021-10-25 06:37] LABS: CREATININE 0.7 mg/dL (0.6-1.3); POTASSIUM 3.1 mmol/L (3.5-5.1)
[2021-10-25] MEDS: BLOOD SUGAR DIAGNOSTIC 1 EACH STRIP VI SCH ×4 (06:49→20:36)
[2021-10-25] MEDS ORDERED: CEFTRIAXONE 1 G in IV DEXTROSE 5% 50 ML IV SCH (07:00)
[2021-10-25] MEDS: INSULIN REGULAR, HUMAN 300 UNIT/3 ML VIAL SQ PRN ×3 (08:14→16:49)
[2021-10-25] MEDS: MULTIVIT, IRON, MIN NO. 8, FA TABLET PO SCH (09:32)
[2021-10-25] MEDS: FAMOTIDINE 20 MG TABLET PO SCH (09:32)
[2021-10-25] MEDS: levETIRAcetam 500 MG/5 ML LIQUID UDC PO SCH ×2 (09:32→16:47)
[2021-10-25] MEDS: PANTOPRAZOLE SODIUM 40 MG VIAL IV SCH (09:32)
[2021-10-25] MEDS: BETHANECHOL CHLORIDE 10 MG TABLET PO SCH ×3 (09:33→16:51)
[2021-10-25] MEDS: CEFTRIAXONE 1 G in IV DEXTROSE 5% 50 ML IV SCH (09:34)
[2021-10-25] MEDS: ATENOLOL 25 MG TABLET PO SCH (09:34)
[2021-10-25] MEDS: LACOSAMIDE 100 MG/10 ML UDC PO SCH ×2 (09:39→16:47)
--- NOTE | 2021-10-25 11:21 | NUR ---
WOUND CARE CONSULT: PT PRESENTS WITH RED RASH TO RT ABDOMEN/GROIN AREA AND RASH TO GROIN FOLDS AND PERINEUM, PRESENT ON ADMISSION. COLOSTOMY POUCH NOTED TO BE LEAKING. RECOMMENDATIONS MADE FOR SKIN PROTECTION. DISCUSSED WITH NURSING STAFF. IN AGREEMENT WITH PLAN OF CARE. Addendum: 10/25/21 at 1122 by GILMER SPEARS RN Amended: Links added.
[2021-10-25] MEDS: POTASSIUM CHLORIDE 50 ML IV SCH ×4 (11:22→16:50)
[2021-10-25 15:28] LABS: *CREATININE,URINE 24.9 mg/dL (30-125); *URINE TOTAL PROTEIN RANDOM 134.4 mg/dL (<150/24HR)
[2021-10-25] MEDS: levoFLOXacin 500 MG/D5W 500 MG in PREMIXED 1 EACH IV SCH (15:54)
[2021-10-25 16:01] VITALS: BP 101/63
[2021-10-25] MEDS: CLOTRIMAZOLE 1% CREAM 30 GM TUBE TOP SCH (16:51)
--- NOTE | 2021-10-25 19:00 | NUR ---
RECEIVED PATIENT IN BED. AAOX4, LAO SPEAKING WITH LIMITED HUNGARIAN. ON ROOM AIR. IV ACCESS PATENT AND INTACT RUNNING 0.9% N.S AT 100CC/HR. COLOSTOMY BAG INTACT, FLATUS PRESENT. KC CATHETER, DRAINING CLEAR YELLOW URINE. SAFETY PRECAUTIONS IN PLACE. CALL LIGHT WITHIN REACH.
[2021-10-25] MEDS: ZONISAMIDE 100 MG CAPSULE PO SCH (20:27)
[2021-10-25] MEDS: INSULIN REGULAR, HUMAN 300 UNITS/3 ML VIAL SQ PRN (20:41)
[2021-10-25 20:42] VITALS: BP 114/63
[2021-10-26] MEDS: ACETAMINOPHEN 325 MG TABLET PO PRN ×2 (00:41→23:32)
[2021-10-26] MEDS: IV NS 1000 ML 1,000 ML IV PRN ×2 (02:35→12:43)
[2021-10-26 04:00] VITALS: BP 113/60
[2021-10-26] MEDS: METRONIDAZOLE 500 MG/NS 100ML 500 MG in PREMIXED 1 EACH IV SCH (05:16)
[2021-10-26] MEDS: BLOOD SUGAR DIAGNOSTIC 1 EACH STRIP VI SCH ×4 (06:29→21:06)
[2021-10-26 06:59] LABS: HEMATOCRIT 34.1 % (36.7-47.1); MEAN CORPUSCULAR HEMOGLOBIN 29.8 uug (23.8-33.4); PLATELET COUNT (AUTO) 347 K/uL (152-348)
[2021-10-26 07:52] LABS: CREATININE 0.7 mg/dL (0.6-1.3); MAGNESIUM 1.7 mg/dL (1.8-2.4); PHOSPHOROUS 3.5 mg/dL (2.5-4.9); POTASSIUM 3.5 mmol/L (3.5-5.1)
[2021-10-26] MEDS: CEFTRIAXONE 1 G in IV DEXTROSE 5% 50 ML IV SCH (08:58)
[2021-10-26] MEDS: BETHANECHOL CHLORIDE 10 MG TABLET PO SCH ×3 (09:03→18:24)
[2021-10-26] MEDS: PANTOPRAZOLE SODIUM 40 MG VIAL IV SCH (09:03)
[2021-10-26] MEDS: levETIRAcetam 500 MG/5 ML LIQUID UDC PO SCH ×2 (09:03→18:23)
[2021-10-26] MEDS: FAMOTIDINE 20 MG TABLET PO SCH (09:03)
[2021-10-26] MEDS: MULTIVIT, IRON, MIN NO. 8, FA TABLET PO SCH (09:04)
[2021-10-26 09:06] LABS: A/G RATIO 0.6 (0.7-1.7); ALBUMIN 2.1 g/dL (2.9-4.4); ALPHA-1-GLOBULIN 0.3 g/dL (0.0-0.4); ALPHA-2-GLOBULIN 0.8 g/dL (0.4-1.0); BETA GLOBULIN 1.1 g/dL (0.7-1.3); GAMMA GLOBULIN 1.4 g/dL (0.4-1.8); GLOBULIN, TOTAL 3.7 g/dL (2.2-3.9); M-SPIKE Not Observed g/dL (Not Observed)
[2021-10-26] MEDS: ATENOLOL 25 MG TABLET PO SCH (09:18)
[2021-10-26] MEDS: LACOSAMIDE 100 MG/10 ML UDC PO SCH ×2 (09:23→18:24)
[2021-10-26] MEDS: CLOTRIMAZOLE 1% CREAM 30 GM TUBE TOP SCH ×2 (09:24→18:24)
[2021-10-26] MEDS ORDERED: MAGNESIUM OXIDE 400 MG TABLET PO ONE (09:30)
[2021-10-26] MEDS: INSULIN REGULAR, HUMAN 300 UNIT/3 ML VIAL SQ PRN ×3 (09:36→18:28)
[2021-10-26] MEDS ORDERED: DOCUSATE SODIUM 100 MG CAPSULE PO SCH (11:30)
[2021-10-26 12:23] VITALS: BP 108/64
[2021-10-26] MEDS: MIRALAX 17 GM POWD.PACK PO SCH (12:37)
[2021-10-26] MEDS: DOCUSATE SODIUM 100 MG/10 ML LIQUID UDC PO SCH ×2 (12:38→21:04)
[2021-10-26] MEDS: METRONIDAZOLE 500 MG TABLET PO SCH ×2 (15:00→21:04)
[2021-10-26 15:20] VITALS: BP 115/65
[2021-10-26 20:00] VITALS: BP 117/73
[2021-10-26] MEDS: INSULIN REGULAR, HUMAN 300 UNITS/3 ML VIAL SQ PRN (21:08)
[2021-10-26] MEDS: ZONISAMIDE 100 MG CAPSULE PO SCH (21:09)
[2021-10-27 04:00] VITALS: BP 127/69
[2021-10-27] MEDS: METRONIDAZOLE 500 MG TABLET PO SCH ×2 (05:56→13:28)
[2021-10-27] MEDS: BLOOD SUGAR DIAGNOSTIC 1 EACH STRIP VI SCH ×2 (05:59→12:17)
[2021-10-27 06:47] LABS: HEMATOCRIT 36.8 % (36.7-47.1); MEAN CORPUSCULAR HEMOGLOBIN 29.6 uug (23.8-33.4); MEAN CORPUSCULAR VOLUME 87.8 fL (73.0-96.2); PLATELET COUNT (AUTO) 388 K/uL (152-348)
[2021-10-27 07:01] LABS: CREATININE 0.8 mg/dL (0.6-1.3); MAGNESIUM 1.8 mg/dL (1.8-2.4); POTASSIUM 3.6 mmol/L (3.5-5.1)
[2021-10-27] MEDS: levETIRAcetam 500 MG/5 ML LIQUID UDC PO SCH (08:53)
[2021-10-27] MEDS: CEFTRIAXONE 1 G in IV DEXTROSE 5% 50 ML IV SCH (08:53)
[2021-10-27] MEDS: MIRALAX 17 GM POWD.PACK PO SCH (08:53)
[2021-10-27] MEDS: MULTIVIT, IRON, MIN NO. 8, FA TABLET PO SCH (08:53)
[2021-10-27] MEDS: DOCUSATE SODIUM 100 MG/10 ML LIQUID UDC PO SCH (08:53)
[2021-10-27] MEDS: LACOSAMIDE 100 MG/10 ML UDC PO SCH (08:54)
[2021-10-27] MEDS: FAMOTIDINE 20 MG TABLET PO SCH (08:54)
[2021-10-27] MEDS: ATENOLOL 25 MG TABLET PO SCH (08:54)
[2021-10-27] MEDS: BETHANECHOL CHLORIDE 10 MG TABLET PO SCH ×2 (08:56→13:29)
[2021-10-27] MEDS: CLOTRIMAZOLE 1% CREAM 30 GM TUBE TOP SCH (08:58)
[2021-10-27] MEDS ORDERED: PANTOPRAZOLE SODIUM 40 MG VIAL IV SCH (09:00)
[2021-10-27] MEDS: INSULIN REGULAR, HUMAN 300 UNIT/3 ML VIAL SQ PRN ×2 (09:01→11:20)
[2021-10-27] MEDS: ACETAMINOPHEN 325 MG TABLET PO PRN (09:52)
[2021-10-27 11:56] VITALS: BP 132/71
[2021-10-27] MEDS ORDERED: METR500T PO (12:13)
[2021-10-27] MEDS ORDERED: INSU100V28 SQ (12:13)
[2021-10-27] MEDS ORDERED: DEXT50DI8 IV (12:13)
[2021-10-27] MEDS ORDERED: DOCU50LI PO (12:13)
[2021-10-27] MEDS ORDERED: FLUC200T PO (12:13)
[2021-10-27] MEDS ORDERED: Blood Sugar Diagnostic VI (12:13)
[2021-10-27] MEDS ORDERED: FLUCONAZOLE 200 MG TABLET PO ONE (13:00)
[2021-10-27 15:50] VITALS: BP 104/52
--- NOTE | 2021-10-27 15:50 | NUR ---
Pt is being discharged back to [facility]. Ambulance will transport pt. Report called and given to receiving nurse. Pt's colostomy bag changed prior to discharge, vizcaino catheter emptied, IV and ID bands removed. Pt is a/o x 4, south korean speaking, no complaint of pain or signs of acute distress. All discharge education and materials included along with pertinent health information in transfer packet.
== END 2021-10-27 15:50 | DRG 463 ==
LOC: ER 22:55 → TRANSITION 10-23 19:26 → TELE3 10-24 21:22 → MEDSURG3 10-24 21:43
PROVIDERS: ADMIT Nurse Practitioner Acute Care; ATTEND Nurse Practitioner Family
PROC: B546ZZA Ultrasonography of Right Subclavian Vein, Guidance (ICD-10-PCS; principal; 2021-10-25)
PROC: 05H533Z Insertion of Infusion Device into Right Subclavian Vein, Percutaneous Approach (ICD-10-PCS; principal; 2021-10-25)
DX: N13.6 Pyonephrosis (principal); G82.50 Quadriplegia, unspecified; D68.59 Other primary thrombophilia; E44.0 Moderate protein-calorie malnutrition; E87.1 Hypo-osmolality and hyponatremia; F25.9 Schizoaffective disorder, unspecified; F03.90 Unspecified dementia, unspecified severity, without behavioral disturbance, psychotic disturbance, mood disturbance, and anxiety; E88.09 Other disorders of plasma-protein metabolism, not elsewhere classified; B37.41 Candidal cystitis and urethritis; K51.30 Ulcerative (chronic) rectosigmoiditis without complications; K59.81 Ogilvie syndrome; Z93.3 Colostomy status; Z74.09 Other reduced mobility; E11.65 Type 2 diabetes mellitus with hyperglycemia; G40.909 Epilepsy, unspecified, not intractable, without status epilepticus; I10 Essential (primary) hypertension; K21.9 Gastro-esophageal reflux disease without esophagitis; K59.00 Constipation, unspecified; Z79.01 Long term (current) use of anticoagulants; Z90.49 Acquired absence of other specified parts of digestive tract; R33.9 Retention of urine, unspecified; Z68.23 Body mass index [BMI] 23.0-23.9, adult; Z79.84 Long term (current) use of oral hypoglycemic drugs; B96.89 Other specified bacterial agents as the cause of diseases classified elsewhere
CPT/HCPCS: 36415; 74018; 83605; 83735; 84100; 84155; 84156; 84165; 85025; 87086; 93005; A4663; C9113; G0378; J0696; J1815; J1953; J1956; J2405; J3480; J3490; J7040; J8499

== ENCOUNTER 2024-02-22 00:32 | Emergency (ER) | payer OTHER ==
[~2024-02-22] VITALS: Ht 172.7 cm; Wt 74.8 kg
[~2024-02-22 00:32] MED LIST changes: +Blood Sugar Diagnostic VI; -CHOL10002 PO; +DEXT50DI8 IV; +DOCU50LI PO; +FLUC200T PO; +INSU100V28 SQ; +LEVE100S PO; -LEVE500T9 PO; -MELA3TAB41 PO; +METF-440 PO; -METF-494 PO; -METH-806 PO; +METR500T PO; +OMEG1CAP PO; -ONDA4TAB5 PO; -POLY17PO4 PO; +[UNRECOGNIZED DRUG - CODE] IM
[2024-02-22 01:20] LABS: BASOPHILS # (AUTO) 0.1 K/UL (0.0-0.2); BASOPHILS % (AUTO) 0.5 % (0.0-2.0); EOSINOPHILS # (AUTO) 0.1 K/uL (0.0-0.7); EOSINOPHILS % (AUTO) 0.5 % (0.0-7.0); HEMATOCRIT 41.3 % (36.7-47.1); HEMOGLOBIN 13.9 g/dL (12.5-16.3); LYMPHOCYTES # (AUTO) 2.4 K/uL (0.8-4.8); LYMPHOCYTES % (AUTO) 17.3 % (20.5-51.5); MEAN CORPUSCULAR HEMOGLOBIN 28.8 uug (23.8-33.4); MEAN CORPUSCULAR HGB CONC 34 g/dL (32.5-36.3); MEAN CORPUSCULAR VOLUME 85.4 fL (73.0-96.2); MONOCYTES # (AUTO) 0.9 K/uL (0.1-1.30); MONOCYTES % (AUTO) 6.2 % (0.0-11.0); NEUTROPHILS # (AUTO) 10.4 K/uL (1.8-8.9); NEUTROPHILS % (AUTO) 75.5 % (38.5-71.5); PLATELET COUNT (AUTO) 403 K/uL (152-348); RED BLOOD CELL COUNT(AUTO) 4.84 MIL/uL (4.06-5.63); RED CELL DISTRIBUTION WIDTH 13.4 % (12.1-16.2); WHITE BLOOD COUNT (AUTO) 13.8 K/uL (3.6-10.2)
[2024-02-22 02:12] LABS: ALBUMIN 2.9 g/dL (3.4-5.0); BILIRUBIN,DIRECT 0.1 mg/dL (0.0-0.2); BILIRUBIN,TOTAL 0.2 mg/dL (0.2-1.0); CALCIUM 9.3 mg/dL (8.5-10.1); CREATININE 0.8 mg/dL (0.6-1.3); POTASSIUM 4.4 mmol/L (3.5-5.1); TOTAL PROTEIN, SERUM 8.4 g/dL (6.4-8.2)
[2024-02-22] MEDS ORDERED: IV NS 1000 ML 1,000 ML IV ONE (02:45)
[2024-02-22] MEDS: IV NORMAL SALINE 500 ML IV ONE (02:50)
[2024-02-22] MEDS ORDERED: INSU100V7 SQ (03:46)
[2024-02-22] MEDS ORDERED: CYAN500T9 PO (03:46)
[2024-02-22] MEDS ORDERED: INSU100C (03:46)
[2024-02-22] MEDS ORDERED: TAMS-3 PO (03:46)
[2024-02-22 05:16] VITALS: BP 107/84; TEMP 97.9; O2SAT 98
== END 2024-02-22 05:10 ==
LOC: ER 00:37
DX: G40.909 Epilepsy, unspecified, not intractable, without status epilepticus (principal); E86.0 Dehydration; E11.65 Type 2 diabetes mellitus with hyperglycemia; E87.1 Hypo-osmolality and hyponatremia; G82.50 Quadriplegia, unspecified; E46 Unspecified protein-calorie malnutrition; I10 Essential (primary) hypertension; K21.9 Gastro-esophageal reflux disease without esophagitis; F25.9 Schizoaffective disorder, unspecified; R51.9 Headache, unspecified; Z00.01 Encounter for general adult medical examination with abnormal findings; Z79.01 Long term (current) use of anticoagulants; Z79.84 Long term (current) use of oral hypoglycemic drugs; Z79.899 Other long term (current) drug therapy; Z86.74 Personal history of sudden cardiac arrest; Z87.442 Personal history of urinary calculi; Z90.49 Acquired absence of other specified parts of digestive tract; Z68.25 Body mass index [BMI] 25.0-25.9, adult
CPT/HCPCS: 99284; 96360; 70450; 80076; 80048; 85025; 84484; 36415; 93005; 83605; J7040; A4606; A4663

== ENCOUNTER 2024-04-15 20:47 | Emergency (ER) | payer OTHER ==
[~2024-04-15] VITALS: Ht 172.7 cm; Wt 72.6 kg
[~2024-04-15 20:47] MED LIST changes: -ATEN25TA PO; +CYAN500T9 PO; -DOCU50LI PO; -FAMO20TA8 PO; -FLUC200T PO; -HYDR-4075 PO; +INSU100C; -INSU100V28 SQ; +INSU100V7 SQ; -LISI2.5T14 PO; -METF-440 PO; -METR500T PO; -OMEG1CAP PO; +TAMS-3 PO; -[UNRECOGNIZED DRUG - CODE] IM
[2024-04-15] MEDS: CEFEPIME HCL 1 G in IV DEXTROSE 5% 50 ML IV ONE (22:30)
[2024-04-15] MEDS: IV NS 1000 ML 1,000 ML IV ONE (22:30)
[2024-04-15] MEDS: IBUPROFEN 600 MG TABLET PO ONE (22:30)
[2024-04-15 22:36] LABS: BASOPHILS % (AUTO) 0.5 % (0.0-2.0); EOSINOPHILS % (AUTO) 0.2 % (0.0-7.0); HEMOGLOBIN 12.2 g/dL (12.5-16.3); LYMPHOCYTES # (AUTO) 1.5 K/uL (0.8-4.8); LYMPHOCYTES % (AUTO) 18.3 % (20.5-51.5); MEAN CORPUSCULAR HEMOGLOBIN 29.4 uug (23.8-33.4); MEAN CORPUSCULAR HGB CONC 35 g/dL (32.5-36.3); MEAN CORPUSCULAR VOLUME 84.6 fL (73.0-96.2); MONOCYTES % (AUTO) 12.4 % (0.0-11.0); NEUTROPHILS # (AUTO) 5.8 K/uL (1.8-8.9); NEUTROPHILS % (AUTO) 68.6 % (38.5-71.5); PLATELET COUNT (AUTO) 221 K/uL (152-348); RED BLOOD CELL COUNT(AUTO) 4.14 MIL/uL (4.06-5.63); WHITE BLOOD COUNT (AUTO) 8.5 K/uL (3.6-10.2)
[2024-04-15 22:38] LABS: DIFFERENTIAL COMMENT 1
[2024-04-15 22:56] LABS: ALBUMIN 2.8 g/dL (3.4-5.0); BILIRUBIN,DIRECT 0.1 mg/dL (0.0-0.2); BILIRUBIN,TOTAL 0.5 mg/dL (0.2-1.0); CALCIUM 8.3 mg/dL (8.5-10.1); POTASSIUM 3.7 mmol/L (3.5-5.1); TOTAL PROTEIN, SERUM 8.1 g/dL (6.4-8.2)
[2024-04-16] MEDS ORDERED: CEFEPIME HCL 1 G VIAL ONE (00:34)
[2024-04-16] MEDS: OSELTAMIVIR PHOSPHATE 75 MG CAPSULE PO ONE (01:00)
[2024-04-16] MEDS ORDERED: OSELTAMIVIR PHOSPHATE 75 MG CAPSULE ONE (01:56)
[2024-04-16 02:00] LABS: *BILIRUBIN,URIN NEGATIVE (NEGATIVE); *BLOOD, URINE 3+ (NEGATIVE); *CLARITY,URINE SLIGHTLY CLOUDY (CLEAR); *COLOR,URINE AMBER (YELLOW); *KETONES,URINE TRACE (NEGATIVE); *PROTEIN,URINE 2+ (NEGATIVE); *UROBILINOGEN,URINE 0.2 E.U./dl (NORMAL); LEUKOCYTE ESTERASE ,URINE TRACE (NEGATIVE); NITRITE, URINE POSITIVE (NEGATIVE); PH,URINE 5.5 (5.0-8.0)
[2024-04-16 02:14] LABS: UGLUCOSE 1+ (NEGATIVE)
[2024-04-16] MEDS ORDERED: OSEL75CA PO (02:32)
[2024-04-16] MEDS ORDERED: CEFP200T14 PO (02:32)
[2024-04-16 02:40] LABS: RBC,URINE 80-100 /HPF (0-3)
[2024-04-16 02:41] LABS: BACTERIA,URINE MANY /HPF (NONE SEEN); MUCUS,URINE MANY /LPF (0-FEW); SQUAMOUS EPITHELIAL CELL,UR FEW /HPF (NONE SEEN); YEAST,URINE BUDDING YEAST /HPF (NONE SEEN)
[2024-04-16 03:19] VITALS: BP 126/84; TEMP 99; O2SAT 96
[2024-04-16] MEDS ORDERED: ACID1TAB12 PO (16:06)
== END 2024-04-16 03:49 ==
LOC: ER 20:51
DX: J10.1 Influenza due to other identified influenza virus with other respiratory manifestations (principal); R50.9 Fever, unspecified; N39.0 Urinary tract infection, site not specified; R09.89 Other specified symptoms and signs involving the circulatory and respiratory systems; E11.9 Type 2 diabetes mellitus without complications; G40.909 Epilepsy, unspecified, not intractable, without status epilepticus; N40.0 Benign prostatic hyperplasia without lower urinary tract symptoms; R53.2 Functional quadriplegia; Z79.01 Long term (current) use of anticoagulants; Z79.4 Long term (current) use of insulin; Z20.822 Contact with and (suspected) exposure to COVID-19; Z79.899 Other long term (current) drug therapy
CPT/HCPCS: 99285; 96365; 71045; 87804 ×2; 80076; 80048; 85025; 85730; 87040 ×2; 36415; 93005; 83605; 87426; 81001; 87086; J7040; J0692; A4606; A4663

== ENCOUNTER 2024-04-16 05:16 | Inpatient (IN) | payer OTHER ==
[2024-04-12] MEDS: TAMSULOSIN HCL 0.4 MG CAP.SR.24H PO SCH (09:00)
[~2024-04-16] VITALS: Ht 175.3 cm; Wt 79.4 kg
[~2024-04-16 05:16] MED LIST changes: +CEFP200T14 PO; +OSEL75CA PO
[2024-04-16] MEDS ORDERED: ACETAMINOPHEN 325 MG TABLET PO PRN (05:45)
[2024-04-16] MEDS: CEFTRIAXONE 1 G in IV DEXTROSE 5% 50 ML IV SCH (05:45)
[2024-04-16] MEDS ORDERED: DEXTROSE 50% 50 ML DISP.SYRIN IV PRN (05:45)
[2024-04-16] MEDS ORDERED: ENOXAPARIN SODIUM 40 MG/0.4 ML DISP.SYRIN SQ ONE (06:14)
[2024-04-16] MEDS ORDERED: CEFTRIAXONE /D5W 50ML IVPB **ER PYXIS IV ONE (06:14)
[2024-04-16] MEDS ORDERED: CYANOCOBALAMIN 1000 MCG/ML VIAL ONE (06:15)
[2024-04-16] MEDS ORDERED: ACETAMINOPHEN 325 MG TABLET ONE (06:17)
[2024-04-16] MEDS: ACETAMINOPHEN 325 MG TABLET PO ONE (06:22)
[2024-04-16] MEDS ORDERED: CYANOCOBALAMIN 1,000 MCG TABLET ONE (06:24)
[2024-04-16] MEDS: ENOXAPARIN SODIUM 40 MG/0.4 ML DISP.SYRIN SQ SCH (06:30)
[2024-04-16] MEDS: CYANOCOBALAMIN 1,000 MCG TABLET PO ONE (06:41)
[2024-04-16 08:13] LABS: BASOPHILS % (AUTO) 0.5 % (0.0-2.0); EOSINOPHILS % (AUTO) 0.1 % (0.0-7.0); HEMATOCRIT 34.3 % (36.7-47.1); LYMPHOCYTES # (AUTO) 1.2 K/uL (0.8-4.8); LYMPHOCYTES % (AUTO) 17.2 % (20.5-51.5); MEAN CORPUSCULAR HEMOGLOBIN 29.8 uug (23.8-33.4); MEAN CORPUSCULAR HGB CONC 35 g/dL (32.5-36.3); MEAN CORPUSCULAR VOLUME 85.2 fL (73.0-96.2); MONOCYTES % (AUTO) 14.5 % (0.0-11.0); NEUTROPHILS # (AUTO) 4.7 K/uL (1.8-8.9); NEUTROPHILS % (AUTO) 67.7 % (38.5-71.5); PLATELET COUNT (AUTO) 214 K/uL (152-348); RED BLOOD CELL COUNT(AUTO) 4.03 MIL/uL (4.06-5.63); RED CELL DISTRIBUTION WIDTH 16.1 % (12.1-16.2); WHITE BLOOD COUNT (AUTO) 6.9 K/uL (3.6-10.2)
[2024-04-16 08:40] LABS: DIFFERENTIAL COMMENT 1
[2024-04-16 08:42] LABS: CALCIUM 8.5 mg/dL (8.5-10.1); CREATININE 0.8 mg/dL (0.6-1.3); MAGNESIUM 1.8 mg/dL (1.8-2.4); PHOSPHOROUS 3.2 mg/dL (2.5-4.9); POTASSIUM 3.6 mmol/L (3.5-5.1)
[2024-04-16] MEDS ORDERED: TAMSULOSIN HCL 0.4 MG CAP.SR.24H ONE (08:57)
[2024-04-16] MEDS ORDERED: OSELTAMIVIR PHOSPHATE 75 MG CAPSULE ONE (08:57)
[2024-04-16] MEDS: VALPROIC ACID 250 MG/5 ML LIQUID UDC PO SCH (08:58)
[2024-04-16] MEDS: OSELTAMIVIR PHOSPHATE 75 MG CAPSULE PO SCH (08:58)
[2024-04-16] MEDS: TAMSULOSIN HCL 0.4 MG CAP.SR.24H PO SCH (08:59)
[2024-04-16] MEDS: levETIRAcetam 500 MG/5 ML LIQUID UDC PO SCH (08:59)
[2024-04-16] MEDS ORDERED: APIXABAN 2.5 MG TABLET PO SCH (09:00)
[2024-04-16] MEDS ORDERED: LACOSAMIDE 100 MG in IV NORMAL SALINE 50 ML IV SCH (09:00)
[2024-04-16] MEDS: BLOOD SUGAR DIAGNOSTIC 1 EACH STRIP VI SCH (11:30)
[2024-04-16] MEDS: IV NS 1000 ML 1,000 ML IV PRN (15:35)
[2024-04-16] MEDS ORDERED: ACID1TAB12 PO (16:06)
[2024-04-16] MEDS: INSULIN REGULAR, HUMAN 1000 UNIT/10 ML VIAL SQ PRN (16:20)
[2024-04-16] MEDS ORDERED: levETIRAcetam 250 MG TABLET ONE (16:40)
[2024-04-16] MEDS ORDERED: levETIRAcetam 500 MG/5 ML LIQUID UDC ONE (16:45)
[2024-04-16] MEDS ORDERED: LACOSAMIDE 100 MG/10 ML UDC ONE (16:49)
[2024-04-16] MEDS: APIXABAN 2.5 MG TABLET PO SCH (16:49)
[2024-04-16] MEDS: LACOSAMIDE 100 MG/10 ML UDC PO SCH (16:49)
[2024-04-16 22:22] VITALS: BP 126/84; TEMP 99.5; O2SAT 93
[2024-04-16] MEDS: ZONISAMIDE 100 MG CAPSULE PO SCH (23:14)
[2024-04-16] MEDS: DOXYCYCLINE HYCLATE 100 MG TABLET PO SCH (23:14)
[2024-04-16] MEDS ORDERED: CEFEPIME HCL 1 G VIAL ONE (23:20)
[2024-04-16] MEDS: INSULIN GLARGINE,HUM 300 UNITS/3 ML CARTRIDGE SQ SCH (23:28)
[2024-04-17] MEDS: CEFEPIME HCL 1 G in IV DEXTROSE 5% 50 ML IV SCH ×2 (00:08→10:46)
[2024-04-17] MEDS ORDERED: VALPROIC ACID 250 MG CAPSULE PO SCH (06:00)
[2024-04-17] MEDS: VALPROIC ACID 250 MG/5 ML LIQUID UDC PO SCH (06:09)
[2024-04-17 06:37] VITALS: BP 132/71; TEMP 99.2; O2SAT 96
[2024-04-17 07:11] LABS: BASOPHILS % (AUTO) 0.4 % (0.0-2.0); EOSINOPHILS % (AUTO) 0.4 % (0.0-7.0); HEMOGLOBIN 11.5 g/dL (12.5-16.3); LYMPHOCYTES # (AUTO) 1.7 K/uL (0.8-4.8); LYMPHOCYTES % (AUTO) 23.5 % (20.5-51.5); MEAN CORPUSCULAR HEMOGLOBIN 29.6 uug (23.8-33.4); MEAN CORPUSCULAR HGB CONC 35 g/dL (32.5-36.3); MEAN CORPUSCULAR VOLUME 85.1 fL (73.0-96.2); MONOCYTES % (AUTO) 12.9 % (0.0-11.0); NEUTROPHILS # (AUTO) 4.6 K/uL (1.8-8.9); NEUTROPHILS % (AUTO) 62.8 % (38.5-71.5); PLATELET COUNT (AUTO) 191 K/uL (152-348); RED BLOOD CELL COUNT(AUTO) 3.88 MIL/uL (4.06-5.63); WHITE BLOOD COUNT (AUTO) 7.4 K/uL (3.6-10.2)
[2024-04-17 07:44] LABS: VALPROIC ACID 79 ug/mL (50-100)
[2024-04-17 07:50] LABS: ALBUMIN 2.6 g/dL (3.4-5.0); BILIRUBIN,DIRECT 0.1 mg/dL (0.0-0.2); BILIRUBIN,TOTAL 0.3 mg/dL (0.2-1.0); CALCIUM 8.3 mg/dL (8.5-10.1); CREATININE 0.8 mg/dL (0.6-1.3); MAGNESIUM 1.9 mg/dL (1.8-2.4); POTASSIUM 3.5 mmol/L (3.5-5.1); TOTAL PROTEIN, SERUM 7.6 g/dL (6.4-8.2)
[2024-04-17 07:57] LABS: DIFFERENTIAL COMMENT 1
[2024-04-17] MEDS: MULTIVITAMINS,THERAPEUTIC TABLET PO SCH (08:17)
[2024-04-17] MEDS: levETIRAcetam 500 MG TABLET PO SCH (08:18)
[2024-04-17] MEDS: FLUCONAZOLE 200 MG/NS 100ML IV 100 MG in PREMIXED 1 EACH IV ONE (08:19)
[2024-04-17] MEDS: OSELTAMIVIR PHOSPHATE 75 MG CAPSULE PO ONE (08:19)
[2024-04-17] MEDS: LACOSAMIDE 50 MG TABLET PO SCH (08:19)
[2024-04-17] MEDS ORDERED: OSELTAMIVIR PHOSPHATE 75 MG CAPSULE PO SCH (09:00)
[2024-04-17 09:24] LABS: IRON, SERUM 13 ug/dL (50-175)
[2024-04-17 16:00] VITALS: BP 146/78; TEMP 97; O2SAT 93
[2024-04-17 19:30] VITALS: BP 121/69; TEMP 98.4; O2SAT 96
[2024-04-17] MEDS: OSELTAMIVIR PHOSPHATE 75 MG CAPSULE PO SCH (21:00)
[2024-04-17] MEDS: TAMSULOSIN HCL 0.4 MG CAP.SR.24H PO SCH (21:20)
[2024-04-17] MEDS: REMEDY ESSENTIAL ZINC PASTE 113 GM TP PRN (21:28)
[2024-04-18] VITALS: BP 131/71; TEMP 98.2; O2SAT 96
[2024-04-18 02:04] LABS: *BILIRUBIN,URIN NEGATIVE (NEGATIVE); *BLOOD, URINE 3+ (NEGATIVE); *CLARITY,URINE CLEAR (CLEAR); *COLOR,URINE YELLOW (YELLOW); *KETONES,URINE NEGATIVE (NEGATIVE); *PROTEIN,URINE 2+ (NEGATIVE); *UROBILINOGEN,URINE 0.2 E.U./dl (NORMAL); LEUKOCYTE ESTERASE ,URINE 1+ (NEGATIVE); NITRITE, URINE NEGATIVE (NEGATIVE); UGLUCOSE NEGATIVE (NEGATIVE)
[2024-04-18 02:08] LABS: *OCCULT BLOOD STOOL NEGATIVE (NEGATIVE)
[2024-04-18 02:12] LABS: BACTERIA,URINE FEW /HPF (NONE SEEN)
[2024-04-18 02:13] LABS: SQUAMOUS EPITHELIAL CELL,UR FEW /HPF (NONE SEEN); URIC ACID CRYSTALS,URINE FEW /HPF (NONE SEEN)
[2024-04-18 04:00] VITALS: BP 106/55; TEMP 98; O2SAT 96
[2024-04-18 07:12] LABS: BASOPHILS % (AUTO) 0.4 % (0.0-2.0); EOSINOPHILS # (AUTO) 0.1 K/uL (0.0-0.7); EOSINOPHILS % (AUTO) 1.9 % (0.0-7.0); HEMATOCRIT 30.9 % (36.7-47.1); HEMOGLOBIN 10.9 g/dL (12.5-16.3); LYMPHOCYTES # (AUTO) 1.7 K/uL (0.8-4.8); LYMPHOCYTES % (AUTO) 32.5 % (20.5-51.5); MEAN CORPUSCULAR HEMOGLOBIN 29.9 uug (23.8-33.4); MEAN CORPUSCULAR HGB CONC 35 g/dL (32.5-36.3); MEAN CORPUSCULAR VOLUME 84.5 fL (73.0-96.2); MONOCYTES # (AUTO) 0.5 K/uL (0.1-1.30); MONOCYTES % (AUTO) 9.8 % (0.0-11.0); NEUTROPHILS # (AUTO) 2.9 K/uL (1.8-8.9); NEUTROPHILS % (AUTO) 55.4 % (38.5-71.5); PLATELET COUNT (AUTO) 187 K/uL (152-348); RED BLOOD CELL COUNT(AUTO) 3.66 MIL/uL (4.06-5.63); WHITE BLOOD COUNT (AUTO) 5.3 K/uL (3.6-10.2)
[2024-04-18 07:27] LABS: CALCIUM 8.2 mg/dL (8.5-10.1); CARBON DIOXIDE 25 mmol/L (21-32); CHLORIDE 109 mmol/L (98-107); CREATININE 0.6 mg/dL (0.6-1.3); GLUCOSE 109 mg/dL (74-106); MAGNESIUM 1.8 mg/dL (1.8-2.4); PHOSPHOROUS 3.2 mg/dL (2.5-4.9); POTASSIUM 3.3 mmol/L (3.5-5.1); SODIUM SERUM 144 mmol/L (136-145); UREA NITROGEN, BLOOD 11 mg/dL (7-18)
[2024-04-18 07:40] VITALS: BP 115/60; TEMP 97.7; O2SAT 96
[2024-04-18 08:48] LABS: DIFFERENTIAL COMMENT 1
[2024-04-18] MEDS: PROTEIN SUPPLEMENT (PROSTAT) 30 ML LIQUID PO SCH (10:02)
[2024-04-18 12:00] VITALS: BP 113/66; TEMP 97; O2SAT 96
[2024-04-18] MEDS: POTASSIUM CHLORIDE 20 MEQ TAB.PRT.SR PO ONE (12:23)
[2024-04-18 15:11] LABS: THYROID STIMULATING HORMONE 0.726 mIU/mL (0.358-3.740)
[2024-04-18 15:33] VITALS: BP 108/73; TEMP 97.6; O2SAT 94
[2024-04-18] MEDS: ONDANSETRON 4 MG/2 ML VIAL IV PRN (18:22)
[2024-04-18 20:00] VITALS: BP 134/65; TEMP 98; O2SAT 93
[2024-04-19 00:21] VITALS: BP 139/69; TEMP 96.9; O2SAT 97
[2024-04-19 06:14] VITALS: BP 125/72; TEMP 97.9; O2SAT 96
[2024-04-19 07:40] VITALS: BP 125/77; TEMP 98.4; O2SAT 95
[2024-04-19] MEDS ORDERED: IOHEXOL 300MG/ML 100 ML INFUS..BTL ONE (08:38)
[2024-04-19] MEDS ORDERED: SWABABLE VALVE TRANSFER SET EA MC ONE (08:38)
[2024-04-19] MEDS ORDERED: IV NORMAL SALINE 250 ML IV ONE (08:38)
[2024-04-19 10:06] LABS: FREE KAPPA LT CHAINS SERUM 110.7 mg/L (3.3-19.4); FREE LAMBDA LT CHAIN SERUM 64.4 mg/L (5.7-26.3); KAPPA/LAMBDA RATIO SERUM 1.72 (0.26-1.65)
[2024-04-19 10:55] VITALS: BP 126/73; TEMP 97.9; O2SAT 94
[2024-04-19 11:09] LABS: *IMMUNOGLOBULIN G, SERUM 1600 mg/dL (603-1613); IMMUNOGLOBULIN A, SERUM 731 mg/dL (90-386); IMMUNOGLOBULIN M, SERUM 129 mg/dL (20-172)
[2024-04-19 14:58] LABS: BASOPHILS % (AUTO) 0.3 % (0.0-2.0); EOSINOPHILS # (AUTO) 0.1 K/uL (0.0-0.7); EOSINOPHILS % (AUTO) 2.1 % (0.0-7.0); HEMATOCRIT 33.6 % (36.7-47.1); HEMOGLOBIN 11.5 g/dL (12.5-16.3); LYMPHOCYTES # (AUTO) 1.6 K/uL (0.8-4.8); LYMPHOCYTES % (AUTO) 34.3 % (20.5-51.5); MEAN CORPUSCULAR HEMOGLOBIN 28.9 uug (23.8-33.4); MEAN CORPUSCULAR HGB CONC 34 g/dL (32.5-36.3); MEAN CORPUSCULAR VOLUME 84.7 fL (73.0-96.2); MONOCYTES # (AUTO) 0.4 K/uL (0.1-1.30); MONOCYTES % (AUTO) 9.1 % (0.0-11.0); NEUTROPHILS # (AUTO) 2.6 K/uL (1.8-8.9); NEUTROPHILS % (AUTO) 54.2 % (38.5-71.5); PLATELET COUNT (AUTO) 227 K/uL (152-348); RED BLOOD CELL COUNT(AUTO) 3.97 MIL/uL (4.06-5.63); RED CELL DISTRIBUTION WIDTH 15.5 % (12.1-16.2); WHITE BLOOD COUNT (AUTO) 4.8 K/uL (3.6-10.2)
[2024-04-19 15:05] LABS: DIFFERENTIAL COMMENT 1
[2024-04-19 15:08] LABS: CALCIUM 8.4 mg/dL (8.5-10.1); CREATININE 0.7 mg/dL (0.6-1.3); POTASSIUM 3.6 mmol/L (3.5-5.1)
[2024-04-19 15:10] VITALS: BP 113/74; TEMP 97.7; O2SAT 95
[2024-04-19 15:12] LABS: MAGNESIUM 1.8 mg/dL (1.8-2.4); PHOSPHOROUS 3.1 mg/dL (2.5-4.9)
[2024-04-19 19:30] VITALS: BP 145/67; TEMP 97.9; O2SAT 96
[2024-04-19] MEDS: OSELTAMIVIR PHOSPHATE 75 MG CAPSULE PO SCH (21:24)
[2024-04-20 00:25] VITALS: BP 134/80; TEMP 97.5; O2SAT 95
[2024-04-20 04:32] VITALS: BP 121/80; TEMP 98; O2SAT 93
[2024-04-20 08:08] VITALS: BP 139/79; TEMP 98.2; O2SAT 97
[2024-04-20 08:09] LABS: FOLATE (FOLIC ACID), SERUM 16.4 ng/mL (>3.0)
[2024-04-20 10:07] LABS: BASOPHILS % (AUTO) 0.3 % (0.0-2.0); EOSINOPHILS # (AUTO) 0.1 K/uL (0.0-0.7); EOSINOPHILS % (AUTO) 1.2 % (0.0-7.0); HEMATOCRIT 35.1 % (36.7-47.1); HEMOGLOBIN 12.2 g/dL (12.5-16.3); LYMPHOCYTES # (AUTO) 1.6 K/uL (0.8-4.8); MEAN CORPUSCULAR HEMOGLOBIN 29.3 uug (23.8-33.4); MEAN CORPUSCULAR HGB CONC 35 g/dL (32.5-36.3); MEAN CORPUSCULAR VOLUME 84.5 fL (73.0-96.2); MONOCYTES # (AUTO) 0.4 K/uL (0.1-1.30); MONOCYTES % (AUTO) 9.2 % (0.0-11.0); NEUTROPHILS # (AUTO) 2.3 K/uL (1.8-8.9); NEUTROPHILS % (AUTO) 53.3 % (38.5-71.5); PLATELET COUNT (AUTO) 234 K/uL (152-348); RED BLOOD CELL COUNT(AUTO) 4.15 MIL/uL (4.06-5.63); RED CELL DISTRIBUTION WIDTH 15.2 % (12.1-16.2); WHITE BLOOD COUNT (AUTO) 4.4 K/uL (3.6-10.2)
[2024-04-20 10:27] LABS: DIFFERENTIAL COMMENT 1
[2024-04-20 10:38] LABS: CALCIUM 8.9 mg/dL (8.5-10.1); CARBON DIOXIDE 24 mmol/L (21-32); CHLORIDE 105 mmol/L (98-107); CREATININE 0.5 mg/dL (0.6-1.3); GLUCOSE 121 mg/dL (74-106); MAGNESIUM 1.9 mg/dL (1.8-2.4); PHOSPHOROUS 2.7 mg/dL (2.5-4.9); POTASSIUM 3.3 mmol/L (3.5-5.1); SODIUM SERUM 141 mmol/L (136-145); UREA NITROGEN, BLOOD 9 mg/dL (7-18)
[2024-04-20 11:56] VITALS: BP 135/76; TEMP 98.3; O2SAT 95
[2024-04-20] MEDS: SOD FERRIC GLUC COMPLX/SUCROSE 125 MG in IV NORMAL SALINE 100 ML IV SCH (14:06)
[2024-04-20] MEDS: MAGNESIUM CITRATE 296 ML BOTTLE PO ONE (15:24)
[2024-04-20 16:01] VITALS: BP 153/83; TEMP 97.6; O2SAT 97
[2024-04-20 19:58] VITALS: BP 155/87; TEMP 98; O2SAT 97
[2024-04-20] MEDS: POTASSIUM CHLORIDE 20 MEQ POWDER PACKET PO ONE (23:50)
[2024-04-21 00:30] VITALS: BP 131/72; TEMP 98.8; O2SAT 95
[2024-04-21 06:47] LABS: BASOPHILS % (AUTO) 0.3 % (0.0-2.0); EOSINOPHILS # (AUTO) 0.1 K/uL (0.0-0.7); EOSINOPHILS % (AUTO) 0.8 % (0.0-7.0); HEMATOCRIT 35.4 % (36.7-47.1); LYMPHOCYTES # (AUTO) 2.2 K/uL (0.8-4.8); MEAN CORPUSCULAR HEMOGLOBIN 28.6 uug (23.8-33.4); MEAN CORPUSCULAR HGB CONC 34 g/dL (32.5-36.3); MEAN CORPUSCULAR VOLUME 84.7 fL (73.0-96.2); MONOCYTES # (AUTO) 0.6 K/uL (0.1-1.30); MONOCYTES % (AUTO) 9.7 % (0.0-11.0); NEUTROPHILS # (AUTO) 3.7 K/uL (1.8-8.9); NEUTROPHILS % (AUTO) 56.2 % (38.5-71.5); PLATELET COUNT (AUTO) 231 K/uL (152-348); RED BLOOD CELL COUNT(AUTO) 4.18 MIL/uL (4.06-5.63); RED CELL DISTRIBUTION WIDTH 15.3 % (12.1-16.2); WHITE BLOOD COUNT (AUTO) 6.6 K/uL (3.6-10.2)
[2024-04-21 06:55] LABS: DIFFERENTIAL COMMENT 1
[2024-04-21 07:00] LABS: CALCIUM 8.7 mg/dL (8.5-10.1); CREATININE 0.7 mg/dL (0.6-1.3); MAGNESIUM 2.1 mg/dL (1.8-2.4); PHOSPHOROUS 2.2 mg/dL (2.5-4.9); POTASSIUM 3.9 mmol/L (3.5-5.1)
[2024-04-21 07:35] VITALS: BP 120/72; TEMP 98; O2SAT 97
[2024-04-21] MEDS ORDERED: SILVER NITRATE APPLICATOR STICK EACH TP ONE ×2 (10:29→10:30)
[2024-04-21] MEDS ORDERED: PROPOFOL 200 MG/20 ML BOTTLE ONE (11:15)
[2024-04-21 11:35] VITALS: BP 140/76; TEMP 97.3; O2SAT 97
[2024-04-21 15:07] LABS: A/G RATIO 0.6 (0.7-1.7); ALBUMIN 2.7 g/dL (2.9-4.4); ALPHA-1-GLOBULIN 0.3 g/dL (0.0-0.4); ALPHA-2-GLOBULIN 0.9 g/dL (0.4-1.0); BETA GLOBULIN 1.2 g/dL (0.7-1.3); GAMMA GLOBULIN 1.8 g/dL (0.4-1.8); GLOBULIN, TOTAL 4.2 g/dL (2.2-3.9); M-SPIKE Not Observed g/dL (Not Observed); PROTEIN, TOTAL 6.9 g/dL (6.0-8.5)
[2024-04-21 15:53] VITALS: BP 144/82; TEMP 97.8; O2SAT 97
[2024-04-21] MEDS: NEUTRA PHOS PACKET PO ONE (17:08)
[2024-04-21 19:35] VITALS: BP 159/88; TEMP 98.6; O2SAT 97
[2024-04-21] MEDS ORDERED: MESALAMINE ENEMA 4 G/60 ML BOTTLE RC SCH (21:00)
[2024-04-22 00:35] VITALS: BP 139/79; TEMP 98.7; O2SAT 95
[2024-04-22 04:30] VITALS: BP 133/74; TEMP 99.3; O2SAT 97
[2024-04-22 07:20] LABS: BASOPHILS % (AUTO) 0.2 % (0.0-2.0); EOSINOPHILS % (AUTO) 0.5 % (0.0-7.0); HEMATOCRIT 35.7 % (36.7-47.1); HEMOGLOBIN 12.3 g/dL (12.5-16.3); LYMPHOCYTES # (AUTO) 1.8 K/uL (0.8-4.8); MEAN CORPUSCULAR HEMOGLOBIN 29.2 uug (23.8-33.4); MEAN CORPUSCULAR HGB CONC 34 g/dL (32.5-36.3); MEAN CORPUSCULAR VOLUME 84.9 fL (73.0-96.2); MONOCYTES # (AUTO) 0.6 K/uL (0.1-1.30); MONOCYTES % (AUTO) 8.8 % (0.0-11.0); NEUTROPHILS # (AUTO) 4.5 K/uL (1.8-8.9); NEUTROPHILS % (AUTO) 64.5 % (38.5-71.5); PLATELET COUNT (AUTO) 267 K/uL (152-348); RED BLOOD CELL COUNT(AUTO) 4.21 MIL/uL (4.06-5.63); RED CELL DISTRIBUTION WIDTH 15.4 % (12.1-16.2)
[2024-04-22 07:36] VITALS: BP 142/86; TEMP 98.1; O2SAT 95
[2024-04-22 07:51] LABS: CALCIUM 8.5 mg/dL (8.5-10.1); CARBON DIOXIDE 22 mmol/L (21-32); CHLORIDE 105 mmol/L (98-107); CREATININE 0.5 mg/dL (0.6-1.3); GLUCOSE 146 mg/dL (74-106); LACTATE DEHYDROGENASE 116 U/L (85-227); MAGNESIUM 1.8 mg/dL (1.8-2.4); PHOSPHOROUS 2.8 mg/dL (2.5-4.9); POTASSIUM 3.3 mmol/L (3.5-5.1); SODIUM SERUM 137 mmol/L (136-145); UREA NITROGEN, BLOOD 7 mg/dL (7-18)
[2024-04-22 08:25] LABS: DIFFERENTIAL COMMENT 1
[2024-04-22] MEDS: POTASSIUM CHLORIDE 20 MEQ TAB.PRT.SR PO ONE (09:36)
[2024-04-22 11:36] VITALS: BP 129/77; TEMP 98.2; O2SAT 98
[2024-04-22 15:58] VITALS: BP 135/72; TEMP 97.6; O2SAT 97
[2024-04-22 19:25] VITALS: BP 139/80; TEMP 97.9; O2SAT 96
[2024-04-23 00:15] VITALS: BP 137/74; TEMP 97.7; O2SAT 96
[2024-04-23 04:15] VITALS: BP 113/57; TEMP 98.4; O2SAT 94
[2024-04-23] MEDS: METRONIDAZOLE 500 MG TABLET PO SCH (05:36)
[2024-04-23 07:08] LABS: AFP, TUMOR MARKER 2.3 ng/mL (0.0-8.4)
[2024-04-23 07:33] VITALS: BP 103/64; TEMP 98.4; O2SAT 96
[2024-04-23 07:46] LABS: CALCIUM 8.7 mg/dL (8.5-10.1); CARBON DIOXIDE 22 mmol/L (21-32); CHLORIDE 106 mmol/L (98-107); CREATININE 0.6 mg/dL (0.6-1.3); GLUCOSE 136 mg/dL (74-106); POTASSIUM 3.3 mmol/L (3.5-5.1); SODIUM SERUM 140 mmol/L (136-145); UREA NITROGEN, BLOOD 7 mg/dL (7-18)
[2024-04-23] MEDS: POTASSIUM CHLORIDE 20 MEQ TAB.PRT.SR PO ONE (11:20)
[2024-04-23 11:33] VITALS: BP 110/65; TEMP 97.5; O2SAT 96
[2024-04-23] MEDS ORDERED: LEVE500T9 PO (11:42)
[2024-04-23] MEDS ORDERED: TAMS-3 PO (11:42)
[2024-04-23] MEDS ORDERED: PROT30LI PO (11:42)
[2024-04-23] MEDS ORDERED: PIPE3.379 IV (11:50)
[2024-04-23 15:47] VITALS: BP 129/75; TEMP 97.4; O2SAT 97
== END 2024-04-23 18:15 | DRG 720 ==
LOC: ER 05:19 → TRANSITION 14:00 → MEDSURG3 21:18 → TELE3 04-17 12:25 → MEDSURG3 04-23 10:33
PROVIDERS: ADMIT Nurse Practitioner Acute Care
PROC: 05H933Z Insertion of Infusion Device into Right Brachial Vein, Percutaneous Approach (ICD-10-PCS; principal; 2024-04-18)
PROC: 0DBP8ZX Excision of Rectum, Via Natural or Artificial Opening Endoscopic, Diagnostic (ICD-10-PCS; 2024-04-23)
DX: A41.89 Other specified sepsis (principal); G92.8 Other toxic encephalopathy; J10.08 Influenza due to other identified influenza virus with other specified pneumonia; R53.2 Functional quadriplegia; G93.1 Anoxic brain damage, not elsewhere classified; D68.59 Other primary thrombophilia; K56.7 Ileus, unspecified; C19 Malignant neoplasm of rectosigmoid junction; J15.9 Unspecified bacterial pneumonia; I48.92 Unspecified atrial flutter; D63.8 Anemia in other chronic diseases classified elsewhere; E88.09 Other disorders of plasma-protein metabolism, not elsewhere classified; F01.52 Vascular dementia, unspecified severity, with psychotic disturbance; I48.0 Paroxysmal atrial fibrillation; E11.65 Type 2 diabetes mellitus with hyperglycemia; B96.89 Other specified bacterial agents as the cause of diseases classified elsewhere; N30.80 Other cystitis without hematuria; K62.89 Other specified diseases of anus and rectum; G40.909 Epilepsy, unspecified, not intractable, without status epilepticus; Z90.49 Acquired absence of other specified parts of digestive tract; Z86.74 Personal history of sudden cardiac arrest; Z79.4 Long term (current) use of insulin; Z79.01 Long term (current) use of anticoagulants; F01.53 Vascular dementia, unspecified severity, with mood disturbance; Z93.3 Colostomy status; K43.9 Ventral hernia without obstruction or gangrene
CPT/HCPCS: 36415; 70450; 71260; 80164; 82105; 82378; 82746; 82784; 83550; 83605; 83615; 83690; 83735; 84100; 84153; 84155; 84165; 84443; 84484; 85025; 86301; 86334; 93005; G0378; J0692; J0696; J1450; J1650; J1815; J2405; J2916; J3420; J3490; J7040; J8499; Q9967